=== PATIENT | female | born 1965 | race Caucasian/White ===

== ENCOUNTER → 2019-05-07 | Outpatient (CLI) | payer OTHER | LOC: MAMMO 09:45 | PROVIDERS: ATTEND Internal Medicine | DX: Z12.31 Encounter for screening mammogram for malignant neoplasm of breast (principal) | CPT/HCPCS: 77067 ==

== ENCOUNTER 2019-07-25 15:17 | Inpatient (IN) | payer OTHER ==
[~2019-07-25] VITALS: Ht 154.9 cm; Wt 174.6 kg
[2019-07-25] MEDS ORDERED: ONDANSETRON HCL INJ 2MG/ML 2ML 2 MG/ML VIAL IV STA (15:36)
[2019-07-25] MEDS ORDERED: MORPHINE SULFATE INJ 4 MG/ML INJ 1ML IV STA (15:36)
[2019-07-25] MEDS ORDERED: SODIUM CHLORIDE 0.9% 1000ML 1,000 ML IV STA (15:36)
[2019-07-25] MEDS ORDERED: LEXAPRO10 MG PO (16:00)
[2019-07-25] MEDS ORDERED: MONTELUKAST SOD10 MG PO (16:00)
[2019-07-25] MEDS ORDERED: FUROSEMIDE40 MG PO (16:00)
[2019-07-25] MEDS ORDERED: LEVOTHYROXINE50 MCG PO (16:00)
[2019-07-25 16:32] LABS: BASOPHILS % 0.4 % (0.0-1.0); EOSINOPHILS # (AUTO) 0.3 (0.0-0.4); EOSINOPHILS % 2.6 % (0.0-6.0); HEMATOCRIT 38.4 % (34.2-44.1); HEMOGLOBIN 10.4 g/dL (12.0-16.0); LYMPHOCYTES # (AUTO) 1.3 (1.0-3.2); LYMPHOCYTES % 12.5 % (18.0-39.1); MEAN CORPUSCULAR HEMOGLOBIN 21.3 pg (28-32); MEAN CORPUSCULAR HGB CONC 27.1 g/dL (31-35); MEAN CORPUSCULAR VOLUME 78.7 fL (81-99); MONOCYTES # (AUTO) 0.7 (0.2-0.8); MONOCYTES % 6.5 % (4.4-11.3); NEUTROPHILS # (AUTO) 7.9 (2.1-6.9); NEUTROPHILS % 77.5 % (38.7-80.0); PLATELET COUNT 213 x10e3/uL (140-360); RED BLOOD COUNT 4.88 x10e6/uL (3.6-5.1); RED CELL DISTRIBUTION WIDTH 21.3 % (11.7-14.4)
[2019-07-25 16:43] LABS: INR 1.05; PARTIAL THROMBOPLASTIN TIME 28.9 seconds (23.8-35.5); PROTHROMBIN TIME 14.2 seconds (11.9-14.5)
--- NOTE | 2019-07-25 16:45 | Diagnostic Imaging Report ---
EXAM: CHEST SINGLE (NOT PORTABLE) DATE: 07/25/2019 3:36 PM INDICATION: Abdominal pain COMPARISON: None IMPRESSION: The trachea is midline. There is mild prominence of the pulmonary vasculature which is nonspecific but can be seen in the setting of edema. The lungs are otherwise symmetrically expanded without evidence for large focal consolidation, pneumothorax, or significant pleural effusion. The cardiac silhouette appears prominent which may be secondary to technique. No acute osseous abdomen is identified. Signed by: Dr. Steve Collins MD on 07/25/2019 4:42 PM
[2019-07-25 16:50] LABS: CLARITY,URINE SL CLOUDY (CLEAR); COLOR,URINE YELLOW (YELLOW); LEUKOCYTE ESTERASE ,URINE NEGATIVE (NEGATIVE); NITRITE,URINE NEGATIVE (NEGATIVE)
[2019-07-25 16:51] LABS: BILIRUBIN,URINE NEGATIVE (NEGATIVE); KETONES,URINE NEGATIVE (NEGATIVE); PROTEIN,URINE DIPSTICK NEGATIVE (NEGATIVE); URINE UROBILINOGEN 0.2 mg/dL (0.2 - 1)
[2019-07-25] MEDS: PIPER-TAZ 3.375 GM 50 ML IV SCH (16:52)
[2019-07-25 16:55] LABS: ALANINE AMINOTRANSFERASE 21 IU/L (0-55); ALBUMIN 3.5 g/dL (3.5-5.0); ALBUMIN/GLOBULIN RATIO 0.9 (0.8-2.0); ALKALINE PHOSPHATASE 104 IU/L (40-150); ANION GAP 16.2 mmol/L (8-16); BLOOD UREA NITROGEN 11 mg/dL (7-26); BUN/CREATININE RATIO 12 (6-25); CARBON DIOXIDE 27 mmol/L (22-29); CHLORIDE 94 mmol/L (98-107); CREATINE KINASE 49 IU/L (29-168); CREATININE, SERUM 0.92 mg/dL (0.57-1.11); EST GLOMERULAR FILTRATION RATE > 60 ML/MIN (60-); GLUCOSE 99 mg/dL (74-118); POTASSIUM 4.2 mmol/L (3.5-5.1); SODIUM 133 mmol/L (136-145)
--- NOTE | 2019-07-25 17:01 | Diagnostic Imaging Report ---
CT of the abdomen and pelvis, without contrast. History: Abdominal pain. Comparison: None available. Technique: Multidetector CT scanning of the abdomen and pelvis was performed from the level of the lung bases to the inferior pubic rami without the use of contrast material. Coronal and sagittal multiplanar reformations were obtained. RADIATION DOSE: Total DLP: 1379.54 mGy*cm Dose modulation, iterative reconstruction, and/or weight based adjustment of the mA/kV was utilized to reduce the radiation dose to as low as reasonably achievable. FINDINGS: Please note the examination is limited by the patient's body habitus with portion of the left lower abdominal cavity abutting the gantry wall and is excluded from the examination. The visualized lungs are unremarkable. The imaged portion of the heart demonstrates no significant abnormality. The liver is mildly enlarged measuring 19 cm in length but otherwise but otherwise demonstrates an unremarkable noncontrast appearance. The gallbladder surgically absent. There are postsurgical changes from prior gastric bypass. The spleen is enlarged measuring 16.7 cm in length. The pancreas and bilateral adrenal glands demonstrate an unremarkable noncontrast appearance. The kidneys are normal in size and location. There is no evidence for nephrolithiasis or hydronephrosis. The partially distended urinary bladder demonstrates no significant abnormalities. The uterus and adnexa are grossly unremarkable. The abdominal aorta is normal in course and caliber. The IVC is normal in caliber. Please note evaluation the bowel is limited without the use of enteric contrast material. The visualized loops of small and large bowel demonstrate no evidence of obstruction or inflammation. There is no ascites or intraperitoneal free air. There are mildly enlarged right inguinal lymph nodes measuring up to 3.0 x 3.4 cm. There are degenerative changes of the thoracolumbar spine. The osseous structures demonstrate no evidence for acute fracture or destructive process. There are postsurgical changes and suspected suture material within the anterior peritoneal wall. Subcutaneous edema stranding present within the anterior abdominal wall. No organized fluid collection is identified. IMPRESSION: Limited examination secondary to patient's body habitus demonstrates no acute abdominopelvic process. Mild hepatomegaly and splenomegaly. Status post cholecystectomy and suspected gastric bypass. Nonspecific mildly enlarged right inguinal lymph nodes. Subcutaneous edema noted within the anterior abdominal wall without evidence for organized fluid collection. Signed by: Dr. Steve Collins MD on 07/25/2019 4:58 PM
[2019-07-25 17:05] LABS: BACTERIA,URINE MODERATE /HPF; EPITHELIAL CELLS,URINE MANY /LPF; TRANSITIONAL EPI CELLS,URINE FEW
[2019-07-25] MEDS ORDERED: SODIUM CHLORIDE 0.9% 1000ML 1,000 ML IV SCH (17:21)
[2019-07-25] MEDS ORDERED: MORPHINE SULFATE INJ 4 MG/ML INJ 1ML IV PRN (17:30)
[2019-07-25] MEDS ORDERED: MORPHINE SULFATE 2 MG/ML SYR 1ML IV PRN (17:30)
[2019-07-25] MEDS: VANCOMYCIN 1GM/NS 250 ML 250 ML IV SCH (17:36)
--- NOTE | 2019-07-25 17:46 | NUR ---
dr cesar herrera at pt bedside
[2019-07-25 18:25] VITALS: BP 113/75
[2019-07-25 18:42] VITALS: BP 113/75
[2019-07-25 18:44] VITALS: BP 130/75
--- NOTE | 2019-07-25 19:05 | NUR ---
received report from day nurse. patient is complaining of pain in the abdomen. MD paged awaiting call back.
[2019-07-25 20:15] VITALS: BP 103/56
[2019-07-25] MEDS: MONTELUKAST SODIUM 10 MG TAB PO SCH (20:42)
[2019-07-25] MEDS: ESCITALOPRAM OXALATE 10 MG TAB PO SCH (20:42)
[2019-07-25 20:45] VITALS: BP 103/56
--- NOTE | 2019-07-25 20:52 | NUR ---
paged a second time for pain medication orders. Received call back from . orders Tramadol 50mg q 12 hours as needed for pain.
[2019-07-25] MEDS ORDERED: TRAMADOL HCL 50 MG TAB PO PRN (21:00)
[2019-07-26] VITALS (8 sets, daily range): BP systolic 104–141; BP diastolic 57–80
--- NOTE | 2019-07-26 01:21 | History and Physical ---
CHIEF COMPLAINT: 1. Abdominal pain. 2. Abdominal swelling. 3. Abdominal redness. HISTORY OF PRESENT ILLNESS: This is a 53-year-old female with a past medical history of hypothyroidism, anxiety, obesity, obstructive sleep apnea, hypothyroidism, recurrent abdominal pain and cellulitis, was in her usual state until the patient came to the ER with abdominal pain, swelling and redness increasing lately. The patient has no leg pain, has bilateral leg edema. No shortness of breath. No chest pain. No diarrhea. No constipation. No hematochezia. No melena. PAST MEDICAL HISTORY: 1. Hypothyroidism. 2. Allergic rhinitis. 3. Obstructive sleep apnea. 4. Anxiety. 5. Morbid obesity. PAST SURGICAL HISTORY: 1. History of gastric bypass surgery. 2. Cholecystectomy. 3. Tonsillectomy. 4. . FAMILY HISTORY: Noncontributory. ALLERGIES: NO KNOWN DRUG ALLERGIES. MEDICATIONS: List attached. SOCIAL HISTORY: The patient denies illicit drug use. Denies smoking. Denies alcohol use. FAMILY HISTORY: Noncontributory. REVIEW OF SYSTEMS: CONSTITUTIONAL: Denies fatigue or weakness. HEENT: No diplopia. No blurring of vision. CARDIOPULMONARY: No chest pain. No shortness of breath. No cough. ALIMENTARY SYSTEM: Has abdominal pain. Abdominal wall redness and tenderness. No nausea, no vomiting. GENITOURINARY SYSTEM: No dysuria. No hematuria. MUSCULOSKELETAL: No joint pain. CENTRAL NERVOUS SYSTEM: No focal weakness. PHYSICAL EXAMINATION: GENERAL: This is a 53-year-old female, who is alert and oriented x3, in no gross distress. VITAL SIGNS: Temperature 98.3, pulse 103, respiratory rate 22, blood pressure 127/80. HEENT: Head is atraumatic and normocephalic. Pupils bilaterally equal to light. EOMs intact. NECK: Supple. No JVD. No carotid bruit. LUNGS: Clear to auscultation and percussion bilaterally. No added sounds. HEART: S1, S2. Regular rate and rhythm. No stenosis or murmur. ABDOMEN: Severely obese. There is redness around the umbilicus and below the umbilicus. Tenderness on touch, hot. No guarding or rigidity. EXTREMITIES: +1 pedal edema. Peripheral pulses +1. FILTER OPERATOR: Grossly nonfocal. LABORATORY DATA: CT of abdomen shows hepatosplenomegaly, abdominal wall cellulitis. Chest x-ray is normal. EKG is pending. Urine is normal. Sodium 133, potassium 4.2, BUN and creatinine normal. AST 43. BNP 308. CBC, white count 10.22, hemoglobin 10.4, hematocrit 38.4, platelet is 213. ASSESSMENT: 1. Abdominal wall cellulitis. 2. Hypothyroidism. 3. History of sleep apnea. 4. Morbid obesity. 5. Anxiety. 6. Allergic rhinitis. 7. Iron deficiency anemia. PLAN: Discontinue IV fluid, IV vancomycin and Zosyn. ID consult, Dr. Guaman. Subcu Lovenox 40 daily for DVT prophylaxis. For GI prophylaxis, Pepcid 20 p.o. b.i.d. Lab in the morning. Continue all home medicine. MD DANTE Judge/SCOOBY /[id number]
[2019-07-26 02:28] LABS: BASOPHILS % 0.4 % (0.0-1.0); EOSINOPHILS # (AUTO) 0.2 (0.0-0.4); EOSINOPHILS % 1.8 % (0.0-6.0); HEMATOCRIT 41.1 % (34.2-44.1); HEMOGLOBIN 10.7 g/dL (12.0-16.0); LYMPHOCYTES # (AUTO) 1.1 (1.0-3.2); LYMPHOCYTES % 10.1 % (18.0-39.1); MEAN CORPUSCULAR VOLUME 80.7 fL (81-99); MONOCYTES # (AUTO) 0.7 (0.2-0.8); MONOCYTES % 6.2 % (4.4-11.3); PLATELET COUNT 189 x10e3/uL (140-360); RED BLOOD COUNT 5.09 x10e6/uL (3.6-5.1); RED CELL DISTRIBUTION WIDTH 21.8 % (11.7-14.4)
[2019-07-26 02:54] LABS: ANION GAP 15.6 mmol/L (8-16); CALCIUM 8.8 mg/dL (8.4-10.2); CREATININE, SERUM 1.17 mg/dL (0.57-1.11); POTASSIUM 4.6 mmol/L (3.5-5.1)
[2019-07-26 03:11] LABS: FERRITIN 15.65 ng/mL (4.63-204.00)
[2019-07-26 03:18] LABS: FREE T4 (FREE THYROXINE) 0.73 ng/dL (0.8-1.8); THYROID STIMULATING HORMONE 7.389 uIU/mL (0.350-4.940)
[2019-07-26] MEDS: VANCOMYCIN 1GM/NS 250 ML 250 ML IV SCH (03:44)
[2019-07-26] MEDS: PIPER-TAZ 3.375 GM 50 ML IV SCH ×3 (05:00→11:26)
[2019-07-26] MEDS: LEVOTHYROXINE SODIUM 50 MCG TAB PO SCH (05:00)
--- NOTE | 2019-07-26 06:49 | NUR ---
REPORT GIVEN TO DAY NURSE. PATIENT IS RESTING COMFORTABLY IN BED. BED IS IN LOWEST POSITION AND CALL ZELAYA IS WITHIN REACH.
--- NOTE | 2019-07-26 07:04 | NUR ---
walking rounds completed, received change of shift report from restaurant shift supervisor RN, pt in stable condition. will continue to monitor.
[2019-07-26] MEDS: FAMOTIDINE 20 MG TAB PO SCH ×2 (07:30→17:18)
--- NOTE | 2019-07-26 07:48 | NUR ---
informed Dr Nicole of pt's difficulty breathing and request for BIPAP; he spoke with pt who states she has not had a sleep study done yet. He states he will consult Dr Miranda
--- NOTE | 2019-07-26 08:42 | NUR ---
spoke with Se[employer], [employer], about getting pt bariatric bed.
[2019-07-26] MEDS: ONDANSETRON HCL INJ 2MG/ML 2ML 2 MG/ML VIAL IV PRN ×2 (10:49→16:55)
[2019-07-26] MEDS: FUROSEMIDE 40 MG TAB PO SCH (10:53)
[2019-07-26] MEDS: ENOXAPARIN SOD INJ 40 MG/0.4 ML SYR SC SCH (10:53)
[2019-07-26] MEDS ORDERED: SUCCINYLCHOLINE CHLORIDE 20 MG/ML 10ML VIAL ONE ×3 (12:35→12:39)
[2019-07-26] MEDS ORDERED: ETOMIDATE 40 MG/ 20ML VIAL IV ONE ×2 (12:35→12:39)
[2019-07-26] MEDS: CEFEPIME 2 GM/NS 0.9% 100 ML 100 ML IV SCH (17:22)
[2019-07-26] MEDS ORDERED: VANCOMYCIN HCL 2 GM in SODIUM CHLORIDE 0.9% 500ML 500 ML IV SCH (18:00)
--- NOTE | 2019-07-26 18:15 | NUR ---
pt c/o nausea and vomiting which has continued after receiving Zofran; paging Dr Wayne Nicole for orders.
--- NOTE | 2019-07-26 18:31 | NUR ---
spoke with Dr. Nicole about pt's nausea; he states there is nothing further we can give at this time. He states make sure Dr. Guaman is aware of the associated nausea and vomiting concerning the new IV Abx that have been started.
--- NOTE | 2019-07-26 19:00 | NUR ---
received report from day nurse. patient is resting comfortably in bed.bed is in lowest position and call burton is within reach. will continue to monitor patient.
[2019-07-26] MEDS: MONTELUKAST SODIUM 10 MG TAB PO SCH (20:51)
[2019-07-26] MEDS: ESCITALOPRAM OXALATE 10 MG TAB PO SCH (20:51)
--- NOTE | 2019-07-26 22:20 | Consultation ---
DATE OF CONSULTATION: REASON FOR CONSULTATION: Cellulitis, abdominal wall. HISTORY OF PRESENT ILLNESS: This patient, who is a morbidly obese patient, hypothyroidism, anxiety, obstructive sleep apnea, hypothyroidism, and recurrent abdominal cellulitis. She told me in December, she was in [facility] where she was on IV antibiotic and she was sent home. She says she continued to have redness and swelling of the abdominal wall. She is coming with redness and swelling and pain of the abdominal wall. The patient was admitted, started on antibiotic. The patient is morbidly obese. MEDICAL HISTORY: She with the above medical history of hypothyroidism, allergic rhinitis, obstructive sleep apnea, and anxiety. PAST SURGICAL HISTORY: Gastric bypass surgery, cholecystectomy, tonsillectomy, . ALLERGIES: NKA. SOCIAL HISTORY: No smoking, drug abuse, or alcohol abuse. FAMILY HISTORY: Obesity. LABORATORY DATA: Reviewed. Blood cultures are negative. White count is 11.09, hemoglobin of 10, sodium 133, potassium 4.6, creatinine 1.17. Her TSH was 7.389. MEDICATION LIST: Reviewed. She is currently on Zosyn and vancomycin. PHYSICAL EXAMINATION: GENERAL: She is currently alert, oriented, and morbidly obese. HEENT: Not icteric. NECK: Supple. CHEST: Clear bilateral. HEART: S1-S2. No S3, S4, or murmur. ABDOMEN: Soft. There is erythema and there is edema noted in the abdominal wall. The erythema involving the abdominal wall, which is massive area because of her obesity. IMPRESSION: 1. Cellulitis. The patient is a morbidly obese patient. She weighed 410 pounds with a BMI of 77.5. We will put the patient on vancomycin and cefepime, vancomycin 2 g q.12 and cefepime 2 g q.8. obtain vancomycin trough. Obtain a PICC line. Recheck CBC. Recheck Chem panel. I am concerned about her kidney function. 2. Sleep apnea. 3. Morbidly obese patient. 4. She may benefit from going to an LTAC because of her obesity as it could be very difficult to manage her antibiotic and with this history of bypass. I do not think she absorbs antibiotic well. She tells me she took several courses of antibiotic as an outpatient without any improvement. We will discuss with attending and Medical team. She must lose weight. We will follow with you. MD VALENTIN Burnett /[id number]
[2019-07-26] MEDS: VANCOMYCIN HCL 2 GM in SODIUM CHLORIDE 0.9% 500ML 500 ML IV SCH (22:39)
[2019-07-27] VITALS (17 sets, daily range): BP systolic 95–147; BP diastolic 62–84
[2019-07-27] MEDS: CEFEPIME 2 GM/NS 0.9% 100 ML 100 ML IV SCH ×3 (01:46→16:52)
[2019-07-27] MEDS: IRON SUCROSE 100 MG in SODIUM CHLORIDE 0.9% 100 ML 100 ML IV SCH ×2 (03:03→21:31)
[2019-07-27 05:55] LABS: BASOPHILS % 0.4 % (0.0-1.0); EOSINOPHILS # (AUTO) 0.2 (0.0-0.4); EOSINOPHILS % 1.7 % (0.0-6.0); HEMATOCRIT 40.8 % (34.2-44.1); HEMOGLOBIN 10.4 g/dL (12.0-16.0); LYMPHOCYTES % 8.9 % (18.0-39.1); MEAN CORPUSCULAR HEMOGLOBIN 21.3 pg (28-32); MEAN CORPUSCULAR HGB CONC 25.5 g/dL (31-35); MEAN CORPUSCULAR VOLUME 83.6 fL (81-99); MONOCYTES # (AUTO) 0.7 (0.2-0.8); NEUTROPHILS # (AUTO) 9.1 (2.1-6.9); NEUTROPHILS % 81.9 % (38.7-80.0); PLATELET COUNT 182 x10e3/uL (140-360); RED BLOOD COUNT 4.88 x10e6/uL (3.6-5.1)
[2019-07-27] MEDS: LEVOTHYROXINE SODIUM 50 MCG TAB PO SCH (05:55)
[2019-07-27] MEDS ORDERED: LEVOTHYROXINE SODIUM 50 MCG TAB PO SCH (06:00)
[2019-07-27 06:13] LABS: ALBUMIN 3.6 g/dL (3.5-5.0); ALBUMIN/GLOBULIN RATIO 0.8 (0.8-2.0); CALCIUM 9.2 mg/dL (8.4-10.2); CREATININE, SERUM 1.35 mg/dL (0.57-1.11)
--- NOTE | 2019-07-27 06:25 | NUR ---
Received vancomycin trough result of 23.4 from laboratory. paged. Awaiting call back from .
[2019-07-27] MEDS: VANCOMYCIN HCL 2 GM in SODIUM CHLORIDE 0.9% 500ML 500 ML IV SCH (07:00)
--- NOTE | 2019-07-27 07:00 | NUR ---
PATIENT IS ALERT AND IN STABLE CONDITION WITH NO S/S OF RESPIRATORY DISTRESS. PATIENT DENIES PAIN. O2 APPLIED AT 4L NC. ALTERNATING BED AVAILABLE FOR PATIENT. CALL LIGHT IS WITHIN REACH OF PATIENT- PATIENT INSTRUCTED TO CALL FOR ASSISTANCE NEEDED.
--- NOTE | 2019-07-27 07:20 | NUR ---
report given to day nurse. patient is resting comfortably in bed. bed is in lowest position and call burton is within reach.
[2019-07-27] MEDS: FAMOTIDINE 20 MG TAB PO SCH ×2 (07:30→08:51)
[2019-07-27] MEDS: ENOXAPARIN SOD INJ 40 MG/0.4 ML SYR SC SCH (08:45)
[2019-07-27] MEDS: FUROSEMIDE 40 MG TAB PO SCH (09:00)
[2019-07-27] MEDS: ALBUTEROL/IPRATROPIUM 3 ML NEB NEB SCH ×3 (10:00→20:15)
[2019-07-27 10:28] LABS: ABG PH 7.14 (7.31-7.41)
--- NOTE | 2019-07-27 10:28 | NUR ---
CALLED AND LEFT A MESSAGE FOR DR. FARRIS WITH [facility] WITH ALL THE BLOOD GAS RESULTS. AWAITING CALLBACK
[2019-07-27 10:29] LABS: ABG HCO3 34 mmol/L (23-28); ABG PCO2 100 mmHg (41-51); ABG PO2 210 mmHg (80-105)
--- NOTE | 2019-07-27 10:30 | NUR ---
P.Brianda. NOTIFIED OF SIRS ALERT- AWAITING CALLBACK.
--- NOTE | 2019-07-27 10:57 | NUR ---
CALLED AND SPOKE WITH DR. GLORIA REGARDING PATIENT'S STATUS AND TRANSFER TO ICU. DR. GLORIA AWARE AND WILL ROUND ONT HE PATIENT THIS AFTERNOON.
--- NOTE | 2019-07-27 10:59 | NUR ---
CALLED AND SPOKE WITH DR. JOLLY REGARDING PATIENT'S EGD PROCEDURE TODAY- DR. JOLLY STATED THE PROCEDURE IS CANCEL. DR. JOLLY UPDATED ON THE PATIENT'S STATUS. ORDER TO KEEP THE PATIENT NPO.
[2019-07-27] MEDS ORDERED: ALBUTEROL/IPRATROPIUM 3 ML NEB NEB SCH (11:00)
[2019-07-27] MEDS ORDERED: METHYLPREDNISOLONE SOD SUCC 40 MG/ML VIAL 1ML IV SCH (11:00)
[2019-07-27 11:45] LABS: ABG PCO2 95 mmHg (41-51); ABG PH 7.14 (7.31-7.41); ABG PO2 112 mmHg (80-105)
[2019-07-27 11:46] LABS: ABG HCO3 33 mmol/L (23-28)
--- NOTE | 2019-07-27 11:55 | NUR ---
Residential Insurance Inspector responded to Rapid Response. No family at bedside. Provided calming presence for staff. LAVERN SKAGGS Residential Insurance Inspector Spiritual Care Department O: [phone] Pager: [phone] ([phone] number calling from)
--- NOTE | 2019-07-27 12:00 | NUR ---
RAPID RESPONSE CALLED ON PATIENT PER 'S ORDER. DR. WALKER, ER PHYSICIAN, WILL INTUBATE THE PATIENT WHEN THE PATIENT TRANSFERS TO ICU.
--- NOTE | 2019-07-27 12:01 | NUR ---
CALL PLACED OUT TO DR. FARRIS REQUESTED BY DR. WALKER, ER PHYSICIAN, REGARDING RAPID RESPONSE/INTUBATING THE PATIENT. AWAITING CALLBACK
--- NOTE | 2019-07-27 12:24 | NUR ---
PATIENT TRANSFER TO ICU ROOM 196 AT 1215 PER BED WITH BIPAP APPLIED. PATIENT IN STABLE CONDITION. IV SALINE LOCKED TO LEFT AC. PATIENT REPOSITION IN ICU- REPORT GIVEN TO ICU NURSE IN THE ICU.
[2019-07-27] MEDS ORDERED: DEXMEDETOMIDINE 200MCG/NS 50ML 50 ML IV PRN (13:15)
[2019-07-27] MEDS ORDERED: DEXMEDETOMIDINE 200MCG/NS 50ML 100 ML IV ONE (13:15)
[2019-07-27] MEDS: METHYLPREDNISOLONE SOD SUCC 40 MG/ML VIAL 1ML IV SCH (14:07)
--- NOTE | 2019-07-27 15:00 | NUR ---
Ty SOLIS notified of vancomycin trough results. ordered vancomycin dosage to be changed to 1.5 grams. Will continue to monitor the patient.
[2019-07-27 15:24] LABS: ABG HCO3 33 mmol/L (23-28); ABG PCO2 94 mmHg (41-51); ABG PH 7.16 (7.31-7.41); ABG PO2 79 mmHg (80-105)
[2019-07-27] MEDS ORDERED: SODIUM CHLORIDE 0.9% 250ML 250 ML ONE (15:42)
[2019-07-27 17:19] LABS: ABG PH 7.17 (7.31-7.41)
--- NOTE | 2019-07-27 17:19 | NUR ---
Patient arrived to unit at 1230 from the medical surgical floor, pending possible intubation. Per ER doctor Neo no need to intubate at this time and patient refusing intubation. Patient arrived agitated and confused. Patient is non compliant and is removing bipap and trying to get out of bed, despite frequent reorientation. Dr. Mendoza notified and orders for Precedex and restraints given. ABG done after 30 minutes of wearing bipap consistently. Dr. mendoza and neo informed of results. Dr. Allison Nicole at bedside to evaluate pt. Dr. Hackett ordered ABG at 1700, notified of results. ABG ordered for 1800.
[2019-07-27 17:20] LABS: ABG HCO3 32 mmol/L (23-28); ABG PCO2 89 mmHg (41-51); ABG PO2 103 mmHg (80-105)
--- NOTE | 2019-07-27 17:32 | Consultation ---
DATE OF CONSULTATION: Pulmonary Consultation Patient of Dr. Jazlyn Nicole. HISTORY OF PRESENT ILLNESS: Charming, but unfortunate 53-year-old woman, sleepy, somnolent, snoring with episodes of apnea, admitted with a chief complaint of abdominal pain on the 11th of this month. PAST MEDICAL HISTORY: History of obstructive sleep apnea diagnosed in [place], unable to afford a CPAP, history of asthma since age 4. Hypothyroidism and depression, found to be iron deficient. ALLERGIES: HISTORY OF NO KNOWN ALLERGIES. MEDICATIONS: Include: 1. Lexapro. 2. Lasix. 3. Suboxone. 4. Montelukast. PAST SURGICAL HISTORY: She has had Betsy-en-Y surgery, T and A, C-sections, and gallbladder surgery. SOCIAL HISTORY: Nonsmoker. No alcohol. Born in [place]. Worked in sales. FAMILY HISTORY: Positive for cancer. PHYSICAL EXAMINATION: GENERAL: Sleepy, but arousable, able to relate her history. VITAL SIGNS: Temperature 95.9, pulse 98, respirations 14, and blood pressure . NECK: Trachea midline. LUNGS: Diminished breath sounds. HEART: Regular rhythm. ABDOMEN: Obese, surgical scars at the panniculus and resolving cellulitis. EXTREMITIES: Stasis changes in lower extremity. IMPRESSION: Respiratory failure, obesity hypoventilation syndrome, cellulitis, anemia presumably related to bowel obstruction. PLAN: Transfer to ICU. BiPAP. Check blood gases. Bronchodilators. Moderate-dose corticosteroids. Thank you for this kind referral. MD REYNALDO Borges/MODL /[id number]
[2019-07-27] MEDS: VANCOMYCIN HCL IV SCH (18:03)
[2019-07-27] MEDS: SODIUM CHLORIDE 0.9% IV SCH (18:03)
[2019-07-27 18:56] LABS: ABG HCO3 32 mmol/L (23-28); ABG PCO2 86 mmHg (41-51); ABG PH 7.18 (7.31-7.41); ABG PO2 115 mmHg (80-105)
[2019-07-27] MEDS ORDERED: BUDESONIDE/FORMOTEROL 160/4.5MCG INHALER INH SCH (19:00)
[2019-07-27] MEDS: ESCITALOPRAM OXALATE 10 MG TAB PO SCH (20:14)
[2019-07-27] MEDS: MONTELUKAST SODIUM 10 MG TAB PO SCH (20:15)
[2019-07-27] MEDS: DEXMEDETOMIDINE 200MCG/NS 50ML 50 ML IV PRN (21:00)
[2019-07-28] VITALS (26 sets, daily range): BP systolic 98–138; BP diastolic 62–85
[2019-07-28] MEDS: ALBUTEROL/IPRATROPIUM 3 ML NEB NEB SCH ×7 (00:15→22:05)
[2019-07-28] MEDS: CEFEPIME 2 GM/NS 0.9% 100 ML 100 ML IV SCH ×3 (00:36→16:25)
[2019-07-28] MEDS: DEXMEDETOMIDINE 200MCG/NS 50ML 50 ML IV PRN ×4 (02:05→06:41)
[2019-07-28] MEDS: METHYLPREDNISOLONE SOD SUCC 40 MG/ML VIAL 1ML IV SCH ×2 (02:59→15:39)
[2019-07-28] MEDS: LEVOTHYROXINE SODIUM 75 MCG TAB PO SCH (05:09)
[2019-07-28 05:38] LABS: BASOPHILS % 0.2 % (0.0-1.0); EOSINOPHILS # (AUTO) 0.1 (0.0-0.4); EOSINOPHILS % 0.6 % (0.0-6.0); HEMATOCRIT 40.7 % (34.2-44.1); HEMOGLOBIN 10.3 g/dL (12.0-16.0); LYMPHOCYTES % 8.2 % (18.0-39.1); MEAN CORPUSCULAR HGB CONC 25.3 g/dL (31-35); MEAN CORPUSCULAR VOLUME 83.1 fL (81-99); MONOCYTES # (AUTO) 0.7 (0.2-0.8); MONOCYTES % 5.8 % (4.4-11.3); NEUTROPHILS # (AUTO) 10.6 (2.1-6.9); NEUTROPHILS % 84.3 % (38.7-80.0); PLATELET COUNT 175 x10e3/uL (140-360); RED CELL DISTRIBUTION WIDTH 21.2 % (11.7-14.4)
[2019-07-28 05:49] LABS: ANION GAP 17.3 mmol/L (8-16); CALCIUM 9.2 mg/dL (8.4-10.2); CREATININE, SERUM 1.75 mg/dL (0.57-1.11)
[2019-07-28] MEDS ORDERED: LEVOTHYROXINE SODIUM 50 MCG TAB PO SCH (06:00)
[2019-07-28] MEDS ORDERED: FUROSEMIDE INJ 10 MG/ML 4 ML VIAL IV SCH (06:00)
[2019-07-28 06:19] LABS: POTASSIUM 6.3 mmol/L (3.5-5.1)
--- NOTE | 2019-07-28 06:32 | NUR ---
Page out to Dr. Mendoza regarding critical potassium level. Awaiting call back.
[2019-07-28] MEDS: VANCOMYCIN HCL IV SCH ×2 (06:42→18:16)
[2019-07-28] MEDS: SODIUM CHLORIDE 0.9% IV SCH ×2 (06:42→18:16)
[2019-07-28] MEDS ORDERED: ALBUTEROL SULF 0.083% NEB SOLN 3 ML NEB NEB STA (06:50)
[2019-07-28] MEDS ORDERED: DEXTROSE 50% SYRINGE 50 ML IV STA (06:58)
[2019-07-28] MEDS ORDERED: FUROSEMIDE INJ 10 MG/ML 4 ML VIAL IV ONE (07:00)
[2019-07-28] MEDS ORDERED: INSULIN REGULAR, HUMAN 100 UNIT/1 ML 3ML VIAL SQ ONE (07:00)
--- NOTE | 2019-07-28 07:01 | NUR ---
Dr. Hackett rounding on patient, saw critical potassium levels and notified that we are waiting for Mendoza to call back. gave orders. Orders entered in eMAR
[2019-07-28] MEDS ORDERED: ALBUTEROL SULF 0.083% NEB SOLN 3 ML NEB ONE (07:14)
--- NOTE | 2019-07-28 07:38 | Diagnostic Imaging Report ---
EXAMINATION: CHEST SINGLE (PORTABLE) INDICATION: ^sob ^[id number] ^[id number] COMPARISON: 07/25/2019 FINDINGS: AP view TUBES and LINES: None. LUNGS: Worsening decreased lung volumes when compared to prior exam. Bilateral interstitial edema, increased. Left lower hemithorax is difficult to evaluate but appears to be worsening pleural effusion/atelectasis. PLEURA: Possible small left pleural effusion, increased since prior exam. No pneumothorax. HEART AND MEDIASTINUM: Widening of the mediastinum likely due to technique. Moderate enlargement of the cardiac silhouette is unchanged. BONES AND SOFT TISSUES: No acute osseous lesion. Soft tissues are unremarkable. UPPER ABDOMEN: No free air under the diaphragm. IMPRESSION: Worsening bilateral interstitial edema. Opacification of the left lower hemithorax may be overestimated by technique but suspected new left pleural effusion. Consider repeat chest x-ray with better inspiration. Signed by: Dr. Aayla Can M.D. on 07/28/2019 7:34 AM
[2019-07-28] MEDS: ENOXAPARIN SOD INJ 40 MG/0.4 ML SYR SC SCH (07:52)
[2019-07-28] MEDS ORDERED: INSULIN REGULAR, HUMAN 100 UNIT/1 ML 3ML VIAL IV ONE (08:00)
[2019-07-28] MEDS ORDERED: SOD POLYSTYRENE SULFONATE SUSP 15 GM/60 ML BTL PO NR (08:15)
[2019-07-28 08:47] LABS: HYPOCHROMASIA MODERATE; PLATELET ESTIMATE ADEQUATE; PLATELET MORPHOLOGY COMMENT NORMAL; RBC MORPHOLOGY COMMENT ABNORMAL; TARGET CELLS FEW
[2019-07-28] MEDS ORDERED: ATROPINE SULFATE 0.1 MG/ML 10ML SYR ONE (08:55)
[2019-07-28] MEDS ORDERED: SODIUM CHLORIDE 0.9% 1000ML 1,000 ML ONE (08:55)
[2019-07-28] MEDS: FENTANYL CITRATE INJ 2000 MCG in SODIUM CHLORIDE 0.9% 210 ML IV PRN ×2 (09:39→22:21)
[2019-07-28] MEDS ORDERED: DEXTROSE 5%/0.9% SOD CHL 1,000 ML IV SCH (10:00)
[2019-07-28] MEDS ORDERED: SODIUM CHLORIDE 0.9% 250ML 250 ML IV ONE (10:00)
--- NOTE | 2019-07-28 10:00 | Diagnostic Imaging Report ---
EXAMINATION: CHEST SINGLE (PORTABLE) INDICATION: ^[id number] ^[id number] ^INTUBATION AND CENTRAL LINE COMPARISON: None FINDINGS: AP view TUBES and LINES: Suboptimal exam due to underpenetration. There is interval intubation. Endotracheal tube appears to overlie in the right mainstem bronchus. No central line visualized. LUNGS: Low lung volumes. Persistent bilateral interstitial edema. PLEURA: No pleural effusion or pneumothorax. HEART AND MEDIASTINUM: Moderate enlargement of the cardiac silhouette. BONES AND SOFT TISSUES: No acute osseous lesion. Soft tissues are unremarkable. UPPER ABDOMEN: No free air under the diaphragm. IMPRESSION: Suboptimal exam due to underpenetration. Endotracheal tube appears to be in the right mainstem bronchus. Recommend retrieve it by 4 cm. No central line visualized. These findings were communicated to Dr Mendoza on 07/28/2019 at 9:55AM. Signed by: Dr. Ayala Can M.D. on 07/28/2019 9:57 AM
[2019-07-28] MEDS ORDERED: PANTOPRAZOLE 40 MG 10ML VIAL IV NR (10:45)
[2019-07-28 10:47] LABS: ABG PCO2 75 mmHg (41-51); ABG PO2 80 mmHg (80-105)
[2019-07-28 10:48] LABS: ABG HCO3 30 mmol/L (23-28)
[2019-07-28] MEDS: BUDESONIDE 0.5MG/2 ML NEB INH SCH ×2 (11:06→19:05)
--- NOTE | 2019-07-28 11:43 | NUR ---
Dr. Susan Hackett rounded this morning after ABG drawn, MD aware potassium 6.3. wanted to order albuterol, D50, insulin IV and Lasix. Dr. Mendoza called to make sure MD ok with these orders. Dr. Mendoza gave ok to carry out orders, MD also informed of ABG results. Potassium recheck ordered for this afternoon. Rapid response called at 0840 due to respiratory failure and pt agitation. Patient running bradycardia in 50's, O2 sats in 80's. Dr. Roxanne Hackett intubated patient. Patient given 40mg Etomidate, 200mg Succinycholine. During intubation patient's HR dropped to 20-30's temporarily. Atropine given IV. (refer to rapid response sheet for times and doses). Patient started on versed and fentanyl drip. Dr. Roxanne Hackett placed RIJ during rapid response due to poor IV access. NGT attempted as well but stopped due to patient's bleeding. Chest x ray post line placement did not show central line (both Dr. Hackett and Dr. Mendoza aware), chest x ray re ordered (both doctors informed again of results). Respiratory ordered by Dr. Mendoza to retract ETT tube slightly. Dr. Susan Hackett came and attempted central line placement again but was unsuccessful. Previous malpositioned central line removed by Dr. Roxanne Hackett. Bleeding present upon removal of CVC, pressure held until bleeding stopped. Per MD line placement will need to be done by interventional radiology or consider PICC line. Will continue to monitor the patient.
[2019-07-28 13:09] LABS: ABG HCO3 27 mmol/L (23-28); ABG PCO2 49 mmHg (41-51); ABG PH 7.36 (7.31-7.41); ABG PO2 102 mmHg (80-105)
[2019-07-28] MEDS: BUMETANIDE 10 MG in SODIUM CHLORIDE 0.9% 100 ML 60 ML IV SCH (17:20)
--- NOTE | 2019-07-28 17:48 | Diagnostic Imaging Report ---
EXAMINATION: CHEST SINGLE (PORTABLE) INDICATION: ^intubation cvp ^[id number] ^[id number] COMPARISON: None FINDINGS: AP view TUBES and LINES: Endotracheal tube has been mildly retracted, now at the level of the kelle. Recommend retraction of at least additional 2 cm. There is a left IJ central venous catheter overlying the neck which appears to be kinked and the distal aspect of the catheter extending into the supraclavicular region. LUNGS: Low lung volumes. Bilateral interstitial edema, unchanged. Left lower hemithorax is difficult to evaluate but appears to be pleural effusion/atelectasis. PLEURA: Possible small left pleural effusion, increased since prior exam. No pneumothorax. HEART AND MEDIASTINUM: Widening of the mediastinum likely due to technique. Moderate enlargement of the cardiac silhouette is unchanged. BONES AND SOFT TISSUES: No acute osseous lesion. Soft tissues are unremarkable. UPPER ABDOMEN: No free air under the diaphragm. IMPRESSION: Mild retraction of the endotracheal tube at the T11 level of the kelle. Right common additional retraction of 2 cm. Left IJ central venous catheter of uncertain location, with the stent catheter overlying the soft tissues of the left supraclavicular region. An additional chest radiograph would be obtained in the radiology department for better characterization of the findings. Unchanged bilateral interstitial edema. Signed by: Dr. Ayala Can M.D. on 07/28/2019 5:45 PM
[2019-07-28 18:29] LABS: CLARITY,URINE SL CLOUDY (CLEAR); COLOR,URINE YELLOW (YELLOW); KETONES,URINE NEGATIVE (NEGATIVE); LEUKOCYTE ESTERASE ,URINE SMALL (NEGATIVE); NITRITE,URINE NEGATIVE (NEGATIVE); PROTEIN,URINE DIPSTICK NEGATIVE (NEGATIVE); URINE UROBILINOGEN 0.2 mg/dL (0.2 - 1)
[2019-07-28 18:30] LABS: BILIRUBIN,URINE NEGATIVE (NEGATIVE)
--- NOTE | 2019-07-28 18:30 | NUR ---
Dr. Mendoza informed of ABG results. Patient had episodes of desaturating due to biting on ETT tube. Respiratory called. Patient repositioned and saturations became WNL. Dr. Somers's office called and notified of new consult. Nephrology ok with PICC line placement, Dr. Mendoza notified and gave orders. called for consent but did not call back. IV fluids d/c and pt started on bumex drip. Will continue to monitor the patient.
--- NOTE | 2019-07-28 18:35 | Progress Note ---
DATE: SUBJECTIVE: Ms. Garcia is intubated. She is in intensive care unit. She is sedated, noncommunicative. . PHYSICAL EXAMINATION: GENERAL: She is intubated, sedated, morbidly obese patient. HEENT: Normocephalic. Oral intubation. CHEST: A few crackles. COR: S1,S2. No murmurs. ABDOMEN: Soft, obese. No tenderness. SKIN: The legs and abdomen seems to be less erythematous, less edematous, but still she does have venous stasis dermatitis. IMPRESSION: 1. Respiratory failure. 2. Obstructive sleep apnea. 3. Morbidly obese patient. 4. Status post Betsy-en-Y surgery. 5. Cellulitis of the abdominal wall. 6. Bilateral lower extremities edema. 7. Bilateral lower extremities venous stasis dermatitis. Multiple admissions recently. PLAN: Continue with cefepime and vancomycin. Follow trough. Recheck CBC. Recheck Chem panel. Prognosis is very guarded. We will follow with you. MD SHAYNA Burnett/SCOOBY /[id number]
[2019-07-28 18:36] LABS: BACTERIA,URINE FEW /HPF; EPITHELIAL CELLS,URINE FEW /LPF
[2019-07-28] MEDS: MONTELUKAST SODIUM 10 MG TAB PO SCH (20:48)
[2019-07-28] MEDS: ESCITALOPRAM OXALATE 10 MG TAB PO SCH (20:48)
[2019-07-28] MEDS: IRON SUCROSE 100 MG in SODIUM CHLORIDE 0.9% 100 ML 100 ML IV SCH (20:51)
[2019-07-28] MEDS: MIDAZOLAM HCL 25 MG in SODIUM CHLORIDE 0.9% 45 ML IV PRN (22:21)
[2019-07-29] VITALS (28 sets, daily range): BP systolic 107–177; BP diastolic 68–99
--- NOTE | 2019-07-29 00:26 | Consultation ---
DATE OF CONSULTATION: 07/28/2019 Nephrology consult HISTORY OF PRESENT ILLNESS: The patient is a 53-year-old woman who has a history of obstructive sleep apnea, COPD, and hypothyroidism. She presents for evaluation of abdominal cellulitis. I am asked to evaluated kidney injury component. The patient is admitted presently in the intensive care unit requiring ventilatory support and directed antibiotics, seen by Dr. Guaman of the Infectious Disease service. She is on 45% of O2 ventilatory delivery and received medical treatment for hypokalemia this morning of consult. Repeat potassium has improved. So, she received diuretic with posterior and output noted by Araya catheter. LABORATORY DATA: Labs at this time; creatinine elevation to 1.7 mg/dL from 1.4 mg/dL at admission. REVIEW OF SYSTEMS: Her review of systems is unable to be obtained due to ventilation and present situation. ALLERGIES: NO KNOWN DRUG ALLERGIES. MEDICATIONS AT HOME: Lexapro, Lasix, Suboxone, and montelukast. PAST MEDICAL HISTORY: Obstructive sleep apnea, hypothyroidism, COPD, depression, iron deficiency and morbid obesity. SOCIAL HISTORY: No tobacco, alcohol or illicit drugs. FAMILY HISTORY: Unknown for renal disease. PAST SURGICAL HISTORY: Betsy-en-Y surgery, sections, cholecystectomy, (gastric bypass surgery, tonsillectomy, cesarian section). LABORATORY DATA: Labs at this time; sodium 135, potassium is improved to 5.3 from 6.3 on prior morning. Chloride 100, bicarb 24, BUN 12, creatinine 1.75, glucose 113, calcium 9.2, total protein 8.0, albumin 3.6, globulin fraction 4.4, TSH 7.3. Urinalysis, yellow, slightly cloudy , unremarkable, moderate bacteria is noted. ABG; 7.36 pH, pCO2 49%, pO2 102, bicarb calculated 27. FiO2 60%. Vancomycin level on 07/27/2019 is 23.4. Random vancomycin is 18.8. Chest x-ray reveals worsening bilaterally interstitial edema. There is opacification on the left lower lobe pneumothorax, which may be over estimated by technique, but suspecting new left pleural effusion. Abdomen and pelvis CT on 07/25. No IV contrast administered. There was mild hepatomegaly and splenomegaly with some cutaneous edema in the anterior abdominal wall without evidence of inorganic fluid collection. This is my formal report. The kidneys are normal in size and location. No evidence for nephrolithiasis or hydronephrosis. Partially distended urinary bladder again by formal report. PHYSICAL EXAMINATION: GENERAL: Oral intubation. VITAL SIGNS: The patient is afebrile, 98.0. Blood pressure 98/62, respirations 16, ventilatory set at 45% FiO2 delivery. HEAD AND NECK: Atraumatic, normocephalic. ORAL: ET tube. No scleral or mucosal lesions. NECK: Positive midline trachea. No JVP appreciated. LUNGS: Revealed decreased breath sounds in the posterior bases. No wheezes. No rhonchi. CARDIAC: Regular rate. Distant sounds. ABDOMEN: Obese, soft, nontender and nondistended. No guarding or rebound. EXTREMITIES: Positive lower extremities tissue/edema, bilateral lower extremities. Also positive stasis changes of skin. ABDOMEN: Obese. Surgical scars noted. Resolving cellulitis. ASSESSMENT: 1. Nonoliguric kidney injury superimposed and likely underlying chronic kidney disease stage 3. 2. Increase volume status. 3. Hyperkalemia. 4. Stabilizing base status. 5. Hemodynamically presently stable with ongoing treatment and monitoring. 6. Cellulitis. Continuous antibiotics by Infectious Disease Service. PLAN: 1. Daily renal panel. 2. Monitor potassium and treat medically as required. 3. Bumex infusion and monitor urine output volume status with hemodynamics. 4. Dose and adjust medications for estimated creatinine clearance were approximately 35 to 40 mL per minute . 5. Presently no acute indication for dialysis consideration. 6. Other recommendations as per clinical course and data. MD REENA Lane/MODL /[id number]
[2019-07-29] MEDS: MIDAZOLAM HCL 25 MG in SODIUM CHLORIDE 0.9% 45 ML IV PRN ×9 (01:17→23:38)
[2019-07-29] MEDS: CEFEPIME 2 GM/NS 0.9% 100 ML 100 ML IV SCH ×3 (01:45→17:45)
[2019-07-29] MEDS: BUMETANIDE 10 MG in SODIUM CHLORIDE 0.9% 100 ML 60 ML IV SCH ×3 (02:00→23:37)
[2019-07-29] MEDS: METHYLPREDNISOLONE SOD SUCC 40 MG/ML VIAL 1ML IV SCH ×2 (03:12→17:45)
[2019-07-29] MEDS: ALBUTEROL/IPRATROPIUM 3 ML NEB NEB SCH ×6 (03:50→23:50)
[2019-07-29 05:58] LABS: BASOPHILS % 0.2 % (0.0-1.0); EOSINOPHILS # (AUTO) 0.1 (0.0-0.4); EOSINOPHILS % 1.3 % (0.0-6.0); HEMATOCRIT 39.2 % (34.2-44.1); HEMOGLOBIN 10.5 g/dL (12.0-16.0); LYMPHOCYTES # (AUTO) 1.2 (1.0-3.2); LYMPHOCYTES % 11.6 % (18.0-39.1); MEAN CORPUSCULAR HEMOGLOBIN 21.3 pg (28-32); MEAN CORPUSCULAR HGB CONC 26.8 g/dL (31-35); MEAN CORPUSCULAR VOLUME 79.4 fL (81-99); MONOCYTES # (AUTO) 0.7 (0.2-0.8); MONOCYTES % 7.2 % (4.4-11.3); NEUTROPHILS # (AUTO) 8.1 (2.1-6.9); NEUTROPHILS % 78.7 % (38.7-80.0); PLATELET COUNT 181 x10e3/uL (140-360); RED BLOOD COUNT 4.94 x10e6/uL (3.6-5.1); RED CELL DISTRIBUTION WIDTH 21.9 % (11.7-14.4)
[2019-07-29] MEDS: LEVOTHYROXINE SODIUM 75 MCG TAB PO SCH ×2 (06:00→17:00)
[2019-07-29] MEDS: FENTANYL CITRATE INJ 2000 MCG in SODIUM CHLORIDE 0.9% 210 ML IV PRN ×3 (06:10→20:46)
[2019-07-29 06:26] LABS: INR 1.14; PROTHROMBIN TIME 15.2 seconds (11.9-14.5)
[2019-07-29 06:37] LABS: ALBUMIN 3.3 g/dL (3.5-5.0); ALBUMIN/GLOBULIN RATIO 0.8 (0.8-2.0); CALCIUM 9.6 mg/dL (8.4-10.2); CREATININE, SERUM 1.97 mg/dL (0.57-1.11); MAGNESIUM 2.2 MG/DL (1.3-2.1)
[2019-07-29] MEDS: VANCOMYCIN HCL IV SCH (07:00)
[2019-07-29] MEDS: SODIUM CHLORIDE 0.9% IV SCH (07:00)
[2019-07-29] MEDS: BUDESONIDE 0.5MG/2 ML NEB INH SCH ×2 (07:20→19:20)
--- NOTE | 2019-07-29 07:29 | Diagnostic Imaging Report ---
EXAMINATION: CHEST SINGLE (PORTABLE) INDICATION: Intubation, CVP. COMPARISON: Chest radiograph 07/28/2019. FINDINGS: AP view Limited examination secondary to portable technique and soft tissue attenuation. TUBES and LINES: Endotracheal tube terminates in the right main stem bronchus, and is approximately 2 cm from the kelle. Previously noted kinked left IJ central venous catheter is no longer visualized, and likely has been removed. LUNGS: Low lung volumes. Mild interstitial opacities. Patchy right lower lung opacity. Persistent opacification of the left hemithorax with no significant mediastinal shift. PLEURA: Persistent moderate left pleural effusion. HEART AND MEDIASTINUM: The cardiomediastinal silhouette appears unchanged and enlarged. BONES AND SOFT TISSUES: No acute osseous lesion. Soft tissues are unremarkable. UPPER ABDOMEN: No free air under the diaphragm. IMPRESSION: Endotracheal tube terminates in the right main stem bronchus, and is approximately 2 cm from the kelle. Recommend retraction by at least 3-4 cm. Persistent opacities of the left lung, likely reflecting a combination of atelectasis/collapse and pleural effusion. Previously noted kinked left IJ central venous catheter is no longer visualized, and likely has been removed. Pulmonary interstitial edema. Signed by: Dr. Adam Constantino MD on 07/29/2019 7:25 AM
[2019-07-29] MEDS ORDERED: PANTOPRAZOLE 40 MG 10ML VIAL IV SCH (09:00)
[2019-07-29] MEDS: ENOXAPARIN SOD INJ 40 MG/0.4 ML SYR SC SCH (09:30)
[2019-07-29 09:42] LABS: ANISOCYTOSIS SLIGHT; HYPOCHROMASIA SLIGHT; PLATELET ESTIMATE ADEQUATE; PLATELET MORPHOLOGY COMMENT NORMAL; RBC MORPHOLOGY COMMENT NORMAL
[2019-07-29 09:44] LABS: POLYCHROMASIA FEW
[2019-07-29] MEDS: PANTOPRAZOLE 40 MG 10ML VIAL IV SCH (10:00)
--- NOTE | 2019-07-29 12:05 | Progress Note ---
DATE: 07/29/2019 Cardiology Progress Note CONSULTING PHYSICIAN: Praveen Troncoso MD, Interventional Cardiology. REASON FOR CONSULTATION: Shortness of breath. HISTORY OF PRESENT ILLNESS: Pleasant 53-year-old woman with extreme morbid obesity, status post gastric bypass, obstructive sleep apnea, hypothyroidism, presents with progressive worsening shortness of breath today via the emergency department. She was placed on BiPAP, however, remained in respiratory distress, hypercarbic, hypoxemic, and is undergoing endotracheal intubation and ventilatory support. She is currently in the ICU, sedated RASS -1, able to open eyes and track with ease, seemingly comfortable. REVIEW OF SYSTEMS: A 12-system review unable to assess. The patient is intubated. ALLERGIES: NO KNOWN DRUG ALLERGIES. PAST MEDICAL HISTORY: CYNTHIA, morbid obesity, hypothyroidism, status post gastric bypass, cholecystectomy, tonsillectomy, . FAMILY HISTORY: Noncontributory. SOCIAL HISTORY: Unable to assess. PHYSICAL EXAMINATION: VITAL SIGNS: Temperature 99.3, heart rate 61, respiratory rate 17, blood pressure 136/83, and O2 saturation 95% on vent support. GENERAL: No acute distress, alert. Intubated, mildly sedated. CHEST: Decreased breath sounds. CARDIOVASCULAR: Regular rate and rhythm. Normal S1, S2. Distant heart sounds. ABDOMEN: Bowel sounds positive. EXTREMITIES: 2+ edema to both lower extremities. Warm distal extremities. MEDICATIONS: Reviewed. On cefepime, vancomycin, methylprednisolone, furosemide 40 mg IV once, Lovenox 40 mg subcu daily, and Bumex 1 mg/hour IV. STUDIES: Reviewed. Calcium 9.6, magnesium 2.2, phosphorus 3. BNP 221. Sodium 138, potassium 5, chloride 99, bicarbonate 23, BUN 28, creatinine 1.97, glucose 111. White blood cells 10.2, hemoglobin 10.5, and platelets 181. PT 15.2, PTT 29. INR 1.1. AST 54, ALT 21, alkaline phosphatase 103, total bilirubin 0.8. X-ray with interstitial pulmonary edema, left retrocardiac opacity, concerning for a pleural effusion versus atelectasis. ASSESSMENT AND PLAN: 1. A 53-year-old woman with mixed hypercarbic and hypoxemic respiratory failure in the setting of obstructive sleep apnea, morbid obesity. 2. Acute renal failure. 3. Anemia. 4. Xqrct-qv-[id number] diastolic heart failure. 5. Extreme morbid obesity with BMI of 75.7, status post gastric bypass. RECOMMEND: 1. Defer antibiotic therapy to ID expertise. 2. Seems to be making adequate urine output on Bumex at 1 mg/hour. Continue to monitor. Volume status at this point, hypervolemic. 3. Monitor H and H. 4. Obtain echocardiogram being obtained today at bedside. Reviewed preserved left ventricular systolic function noted. Praveen Troncoso MD AFV/MODL /[id number]
[2019-07-29] MEDS: DEXMEDETOMIDINE 200MCG/NS 50ML 50 ML IV PRN ×5 (14:00→23:38)
--- NOTE | 2019-07-29 14:12 | NUR ---
progress note [id number]
[2019-07-29] MEDS: LACTULOSE SYRUP 20 GM/30 ML UDC NG SCH (17:45)
--- NOTE | 2019-07-29 18:58 | NUR ---
am vanc trough 43.[address] pelletier order to dc vancomycin
--- NOTE | 2019-07-29 19:01 | NUR ---
nursing report handoff given to chha YO Salgado
[2019-07-29] MEDS: MONTELUKAST SODIUM 10 MG TAB PO SCH (21:05)
[2019-07-29] MEDS: IRON SUCROSE 100 MG in SODIUM CHLORIDE 0.9% 100 ML 100 ML IV SCH (21:05)
[2019-07-29] MEDS: ESCITALOPRAM OXALATE 10 MG TAB PO SCH (21:05)
[2019-07-29] MEDS ORDERED: HYDRALAZINE HCL 20 MG/ML VIAL IV PRN (21:15)
[2019-07-30] VITALS (24 sets, daily range): BP systolic 119–173; BP diastolic 74–97
[2019-07-30] MEDS: CEFEPIME 2 GM/NS 0.9% 100 ML 100 ML IV SCH ×3 (01:22→18:01)
[2019-07-30] MEDS: METHYLPREDNISOLONE SOD SUCC 40 MG/ML VIAL 1ML IV SCH ×3 (02:23→18:14)
[2019-07-30] MEDS: DEXMEDETOMIDINE 200MCG/NS 50ML 50 ML IV PRN ×7 (02:33→21:59)
[2019-07-30] MEDS: ALBUTEROL/IPRATROPIUM 3 ML NEB NEB SCH ×7 (03:00→23:40)
[2019-07-30] MEDS: MIDAZOLAM HCL 25 MG in SODIUM CHLORIDE 0.9% 45 ML IV PRN ×6 (03:11→22:06)
[2019-07-30] MEDS: FENTANYL CITRATE INJ 2000 MCG in SODIUM CHLORIDE 0.9% 210 ML IV PRN ×3 (03:46→18:03)
[2019-07-30] MEDS: LEVOTHYROXINE SODIUM 75 MCG TAB PO SCH (05:21)
[2019-07-30 05:36] LABS: BASOPHILS % 0.3 % (0.0-1.0); HEMATOCRIT 41.9 % (34.2-44.1); HEMOGLOBIN 11.8 g/dL (12.0-16.0); LYMPHOCYTES # (AUTO) 0.7 (1.0-3.2); LYMPHOCYTES % 8.9 % (18.0-39.1); MEAN CORPUSCULAR HEMOGLOBIN 21.2 pg (28-32); MEAN CORPUSCULAR HGB CONC 28.2 g/dL (31-35); MEAN CORPUSCULAR VOLUME 75.2 fL (81-99); MONOCYTES # (AUTO) 0.5 (0.2-0.8); MONOCYTES % 6.8 % (4.4-11.3); NEUTROPHILS # (AUTO) 6.1 (2.1-6.9); NEUTROPHILS % 83.5 % (38.7-80.0); PLATELET COUNT 172 x10e3/uL (140-360); RED BLOOD COUNT 5.57 x10e6/uL (3.6-5.1); RED CELL DISTRIBUTION WIDTH 22.2 % (11.7-14.4)
[2019-07-30 06:00] LABS: ALBUMIN 3.3 g/dL (3.5-5.0); ANION GAP 19.1 mmol/L (8-16); CALCIUM 10.1 mg/dL (8.4-10.2); CREATININE, SERUM 1.94 mg/dL (0.57-1.11); POTASSIUM 4.1 mmol/L (3.5-5.1)
[2019-07-30 06:01] LABS: ALBUMIN/GLOBULIN RATIO 0.7 (0.8-2.0)
[2019-07-30] MEDS: BUDESONIDE 0.5MG/2 ML NEB INH SCH ×2 (07:15→19:30)
[2019-07-30] MEDS ORDERED: HYDRALAZINE HCL 20 MG/ML VIAL IV PRN (08:30)
[2019-07-30] MEDS: LACTULOSE SYRUP 20 GM/30 ML UDC NG SCH ×2 (09:00→17:00)
[2019-07-30 11:02] LABS: ANISOCYTOSIS MODERATE; HYPOCHROMASIA MODERATE; MICROCYTOSIS MODERATE; PLATELET ESTIMATE ADEQUATE; PLATELET MORPHOLOGY COMMENT NORMAL; RBC MORPHOLOGY COMMENT ABNORMAL
--- NOTE | 2019-07-30 11:20 | Diagnostic Imaging Report ---
EXAMINATION: CHEST XRAY LINE PLACEMENT INDICATION: Line placement COMPARISON: Chest are graft of 07/29/2019 FINDINGS: Initial portable chest radiograph was nondiagnostic. Repeat imaging was performed in the radiology department and images used for interpretation. LINES/TUBES:Interval placement of right PICC line terminating in the superior vena cava. Endotracheal tube terminates approximately 2 cm above the kelle. Enteric tube projects below the diaphragm with tip not well visualized. LUNGS:The lung volumes are low. There is perihilar fullness and indistinctness of the pulmonary vasculature. PLEURA:No pleural effusion or pneumothorax. MEDIASTINUM:Cardiomediastinal silhouette is stably enlarged. BONES/SOFT TISSUES:No acute osseous injury. ABDOMEN:No free air under the diaphragm. IMPRESSION: Right PICC line terminates at the superior vena cava. Other lines and tubes as above. Low lung volumes. Pulmonary edema and unchanged cardiomegaly. Signed by: Geoffrey Godoy MD on 07/30/2019 11:16 AM
[2019-07-30] MEDS: PANTOPRAZOLE 40 MG 10ML VIAL IV SCH (11:23)
[2019-07-30] MEDS: ENOXAPARIN SOD INJ 40 MG/0.4 ML SYR SC SCH (11:23)
[2019-07-30] MEDS: BUMETANIDE 10 MG in SODIUM CHLORIDE 0.9% 100 ML 60 ML IV SCH ×2 (11:23→23:47)
--- NOTE | 2019-07-30 11:32 | Diagnostic Imaging Report ---
Exam: KUB - 2 views Indication: Enteric tube placement Comparison: <None.> Findings: NG tube projects below the diaphragm with tip and side-port in the stomach. Nonobstructive bowel gas pattern. No free air. Impression: NG tube with tip and side-port in the stomach. Signed by: Geoffrey Godoy MD on 07/30/2019 11:29 AM
--- NOTE | 2019-07-30 11:58 | Progress Note ---
DATE: 07/30/2019 Cardiology Progress Note SUBJECTIVE: Remains intubated and sedated. OBJECTIVE: VITAL SIGNS: Temperature 97.6, heart rate 54, blood pressure 162/87, respiratory rate 16, and O2 saturation 92%. BMI 72.9. GENERAL: In no acute distress, intubated, sedated. CHEST: With scattered rhonchi and wheezing. CARDIOVASCULAR: Regular rate and rhythm. Normal S1, S2. Distant heart sounds. ABDOMEN: Soft, morbidly obese. EXTREMITIES: With 1+ edema to both lower extremities. CARDIOVASCULAR MEDICATIONS: Reviewed. Receiving cefepime, furosemide 40 mg once and now Bumex drip 1 mg/hour, Lovenox 40 mg subcu daily, hydralazine p.r.n. 10 mg every 6 hours. STUDIES: Reviewed. Sodium 138, potassium 4.1, chloride 95, bicarbonate 28, BUN 36, creatinine 1.9, glucose 146. White blood cell 7.3, hemoglobin 11.8, and platelets 172. PT 15.2, PTT 29. INR 1.1. AST 56, ALT 24, alkaline phosphatase 110, total bilirubin 0.8. ASSESSMENT AND PLAN: 1. A 53-year-old woman presents with volume overload. 2. Hypercapnic respiratory failure. 3. Extreme morbid obesity, obstructive sleep apnea. RECOMMEND: 1. Continue inhalers and diuretics for yqryz-ll-nsahciu diastolic heart failure component. 2. Continue vent support and wean as tolerated. 3. Monitor renal function. The patient in renal failure, creatinine 1.9. Praveen Troncoso MD AFRosa/MODL /[id number]
--- NOTE | 2019-07-30 12:24 | Progress Note ---
DATE: SUBJECTIVE: Ms. Garcia is still in the intensive care unit, intubated. REVIEW OF SYSTEMS: Could not be obtained. PHYSICAL EXAMINATION: GENERAL: She is currently intubated. HEENT: Not icteric. CHEST: Clear. COR: S1 and S2. No S3, S4, or murmur. ABDOMEN: Soft and obese. SKIN: Her abdominal wall remains erythema, but better. IMPRESSION: 1. Cellulitis. 2. Obese patient. 3. Respiratory failure. 4. Continue with antibiotic as ordered. 5. Elevated vancomycin level. We will hold. 6. Acute kidney injury of chronic kidney disease. 7. We will follow. MD SHAYNA Burnett/MODL /[id number]
[2019-07-30 13:51] LABS: ABG HCO3 36 mmol/L (23-28); ABG PCO2 75 mmHg (41-51); ABG PH 7.29 (7.31-7.41); ABG PO2 118 mmHg (80-105)
--- NOTE | 2019-07-30 17:36 | Progress Note ---
DATE: SUBJECTIVE: Ms. Garcia remains in intensive care, intubated. Family at bedside. Review of systems could not be obtained. Apparently, the patient has been drinking heavily. She did not tell that when she first came here. REVIEW OF SYSTEMS: HEENT: Negative. PULMONARY: Negative. CARDIAC: Negative. OBJECTIVE: According to the nursing team: GENERAL: She is intubated, sedated, morbidly obese patient. HEENT: She is not icteric. NECK: Supple. CHEST: Clear. ABDOMEN: The redness has subsided significantly. ASSESSMENT: 1. Respiratory failure. 2. Morbidly obese patient. 3. Underlying sleep apnea. 4. Alcoholism. 5. Cellulitis of the abdominal wall, resolved. PLAN: Stable from Infectious Disease point of view. Antibiotic was adjusted. Please refer to the orders. Discussed with the medical team. Discussed with the family. MD SHAYNA Burnett/SCOOBY /[id number]
--- NOTE | 2019-07-30 18:37 | NUR ---
Nutrition Intervention Note RD Recommendation(s) for Physician: Recommend to initiate nutrition support if pt is to remain intubated -Vital High Protein @ goal rate of 50 mL/hr -Water flush per MD (provides 1200 kcal, 105 g protein, and 1003 mL water/fluid) Plan of Care: RD following, monitoring for tolerance and adequacy Nutrition reason for involvement: mechanical ventilation RD Assessment (07/30/19) Pt is a 53 year old female admitted with abdominal wall cellulitis. Pt was experiencing respiratory distress; therefore, pt was intubated. There were no family members present at bedside; therefore, nutrition history is limited. Recommend enteral nutrition if pt is to remain intubated. Discussed recommendations with RN. Will continue to monitor. Principal Problems/Diagnoses: abdominal wall cellulitis PMH: hypothyroid, obstructive sleep apnea, anxiety, morbid obesity, gastric bypass surgery I/O: 5121/3576 GI: soft, non-tender, large, round abdomen Skin: no pressure ulcers documented Labs: (07/30/19) BUN 36, Creat 1.94, Glu 146, Mg 2.2 Meds: midazolam. Methylprednisolone, bumetanide, pantoprazole, lovenox, fentanyl, iron sucrose, zofran, lactulose, levothyroxine, hydralazine Ht: 61 inches Wt: 386 lbs BMI: 73 kg/m2 IBW: 105 lbs Malnutrition Evaluation (07/30/19) The patient does not meet criteria for a specified degree of malnutrition at this time. Will re-evaluate at follow-up as appropriate. Nutrition Prescription (Diet Order): NPO Estimated Nutritional Needs: 1591-8960 calories/day (22-25 kcal/kg IBW) 72-119 g protein/day (1.5-2.5 g pro/kg IBW) Diet Adequacy: Not meeting calorie needs, Not meeting protein needs (pt is NPO) Tolerance: Pt is NPO Diet Education Needs Assessment: Diet education not indicated at this time Nutrition Care Level: moderate Nutrition Diagnosis: Swallowing difficulty related to mechanical ventilation as evidenced by NPO status Goal: Patient will meet 75-100% of estimated needs by follow up Progress: N/A Interventions: -Tube feeding recommendation - Composition, Rate, Route, Collaboration with other providers Monitoring/Evaluation: -Total energy intake, Total protein intake, Formula/Solution, IVF, Prescription medication, Weight change Signed: Josiane Rutledge RD, LD
--- NOTE | 2019-07-30 19:00 | NUR ---
Report received. Assumed care. Assessment done. See interventions. IVs: Precedex @ 0.4mcg/kg/hr or 21 ml/hr, Versed @ 10 mg/hr or 20ml/hr, Fentanyl @ 300 mcg/hr or 37.5 ml/hr & Bumex @ 1 mg/hr or 10 ml/hr. Orally intubated with 7.5 FR ETT secured at 23 cm at the lip.
[2019-07-30] MEDS: ESCITALOPRAM OXALATE 10 MG TAB PO SCH (21:02)
[2019-07-30] MEDS: MONTELUKAST SODIUM 10 MG TAB PO SCH (21:02)
[2019-07-30] MEDS: IRON SUCROSE 100 MG in SODIUM CHLORIDE 0.9% 100 ML 100 ML IV SCH (22:45)
[2019-07-31] VITALS (25 sets, daily range): BP systolic 108–151; BP diastolic 68–120
[2019-07-31] MEDS: DEXMEDETOMIDINE 200MCG/NS 50ML 50 ML IV PRN ×5 (00:35→21:45)
[2019-07-31] MEDS: MIDAZOLAM HCL 25 MG in SODIUM CHLORIDE 0.9% 45 ML IV PRN ×8 (01:21→23:18)
[2019-07-31] MEDS: FENTANYL CITRATE INJ 2000 MCG in SODIUM CHLORIDE 0.9% 210 ML IV PRN ×3 (01:21→20:13)
[2019-07-31] MEDS: CEFEPIME 2 GM/NS 0.9% 100 ML 100 ML IV SCH ×3 (01:22→16:11)
[2019-07-31] MEDS: METHYLPREDNISOLONE SOD SUCC 40 MG/ML VIAL 1ML IV SCH ×3 (02:18→17:21)
--- NOTE | 2019-07-31 02:30 | NUR ---
Dr. Bruce Ellison here. Orders given for Jevity 1.2 tube feeding. supervisor denture department advised of need for feeding pump. None available on the unit.
[2019-07-31] MEDS: ALBUTEROL/IPRATROPIUM 3 ML NEB NEB SCH ×5 (03:22→19:00)
[2019-07-31] MEDS: BUMETANIDE 10 MG in SODIUM CHLORIDE 0.9% 100 ML 60 ML IV SCH ×2 (04:30→09:02)
[2019-07-31 05:06] LABS: HEMATOCRIT 41.9 % (34.2-44.1); HEMOGLOBIN 11.7 g/dL (12.0-16.0); LYMPHOCYTES # (AUTO) 0.6 (1.0-3.2); LYMPHOCYTES % 8.6 % (18.0-39.1); MEAN CORPUSCULAR HEMOGLOBIN 21.2 pg (28-32); MEAN CORPUSCULAR HGB CONC 27.9 g/dL (31-35); MONOCYTES # (AUTO) 0.5 (0.2-0.8); MONOCYTES % 6.3 % (4.4-11.3); NEUTROPHILS # (AUTO) 6.2 (2.1-6.9); NEUTROPHILS % 84.6 % (38.7-80.0); PLATELET COUNT 175 x10e3/uL (140-360); RED BLOOD COUNT 5.51 x10e6/uL (3.6-5.1); RED CELL DISTRIBUTION WIDTH 22.3 % (11.7-14.4)
[2019-07-31 05:25] LABS: ANION GAP 17.7 mmol/L (8-16); CALCIUM 9.9 mg/dL (8.4-10.2); CREATININE, SERUM 1.78 mg/dL (0.57-1.11); POTASSIUM 3.7 mmol/L (3.5-5.1)
[2019-07-31] MEDS: LEVOTHYROXINE SODIUM 75 MCG TAB PO SCH (05:29)
[2019-07-31] MEDS: BUDESONIDE 0.5MG/2 ML NEB INH SCH ×2 (07:49→19:00)
--- NOTE | 2019-07-31 08:26 | Diagnostic Imaging Report ---
EXAM: CHEST SINGLE (PORTABLE) DATE: 07/31/2019 7:00 AM INDICATION: Intubated COMPARISON: 07/30/2019 FINDINGS: Please note the examination is limited secondary to patient's body habitus and portable technique. Endotracheal tube tip terminating approximately 2.6 cm above the kelle. Right upper extremity PICC line identified over the SVC. Enteric tube noted coursing below the diaphragm. Lung volumes remain low. There are increased bilateral interstitial and airspace opacities as well as prominence of the central pulmonary procedure, findings are unchanged from the prior examination and may reflect edema. There is no evidence for large focal consolidation or pneumothorax. There is blunting of the left costophrenic angle and a small effusion is possible. The cardiomediastinal silhouette is stable in appearance. IMPRESSION: No significant interval change from 07/30/2019. Findings suggestive of pulmonary edema. Signed by: Dr. Steve Collins MD on 07/31/2019 8:23 AM
[2019-07-31] MEDS: ENOXAPARIN SOD INJ 40 MG/0.4 ML SYR SC SCH (09:03)
[2019-07-31] MEDS: PANTOPRAZOLE 40 MG 10ML VIAL IV SCH (09:03)
[2019-07-31] MEDS: THIAMINE HCL 100 MG TAB NG SCH (15:54)
--- NOTE | 2019-07-31 19:00 | NUR ---
Report received. Assumed care. Assessment done. See interventions. Orally intubated with 7.5 FR ETT secured at 23cm at the lip. Vent settings: TV 450, FIO2 40%, PRVC 10 & PEEP 8cm. IVS: Precedex @ 0.4mcg/kg/hr or 17.5ml/hr, Versed @ 10mg/hr or 20ml/hr, and Fentanyl @ 300mcg/hr or 37.5ml/hr. OGT with Jevity 1.2 TF @ 10ml/hr.
--- NOTE | 2019-07-31 20:00 | NUR ---
Dr. Somers here. Status report given. No new orders.
[2019-07-31] MEDS: ESCITALOPRAM OXALATE 10 MG TAB PO SCH (21:34)
[2019-07-31] MEDS: MONTELUKAST SODIUM 10 MG TAB PO SCH (21:34)
[2019-07-31] MEDS: IRON SUCROSE 100 MG in SODIUM CHLORIDE 0.9% 100 ML 100 ML IV SCH (21:35)
--- NOTE | 2019-07-31 23:27 | Progress Note ---
DATE: 07/31/2019 Cardiology Progress Note SUBJECTIVE: Intubated and sedated. OBJECTIVE: VITAL SIGNS: Temperature 98.6, heart rate 101 with sinus tachycardia on telemetry, blood pressure 126/91, respiratory rate 19, O2 saturation 97% on vent support. GENERAL: No acute distress, intubated, sedated. CHEST: Decreased breath sounds. Clear to auscultation otherwise. CARDIOVASCULAR: Regular rate and rhythm. Normal S1, S2. ABDOMEN: Soft. EXTREMITIES: Trace edema. Cardiovascular medication reviewed. Bumex has been discontinued and hydralazine p.r.n. STUDIES: Reviewed. Remarkable for creatinine 1.78 and a BUN of 43, bicarbonate of 34, potassium 3.7, and hemoglobin 11.7. ASSESSMENT AND PLAN: A 53-year-old woman with extreme morbid obesity, obstructive sleep apnea, acute respiratory failure now status post intubation on vent support, acute diastolic heart failure recommend, agree with diuretics holiday as the patient has become prerenal with increasing creatinine, seems to have achieved euvolemic state. Continue vent weaning as per Pulmonary Critical Care's direction and continue p.r.n. antihypertensives. MD FERMÍN Tarango/SCOOBY /[id number]
[2019-08-01] VITALS (26 sets, daily range): BP systolic 118–166; BP diastolic 78–104
[2019-08-01] MEDS: CEFEPIME 2 GM/NS 0.9% 100 ML 100 ML IV SCH ×3 (01:24→16:17)
[2019-08-01] MEDS: DEXMEDETOMIDINE 200MCG/NS 50ML 50 ML IV PRN ×3 (01:25→19:59)
[2019-08-01] MEDS: MIDAZOLAM HCL 25 MG in SODIUM CHLORIDE 0.9% 45 ML IV PRN ×2 (02:27→05:45)
[2019-08-01] MEDS: METHYLPREDNISOLONE SOD SUCC 40 MG/ML VIAL 1ML IV SCH ×3 (02:31→19:06)
[2019-08-01] MEDS: FENTANYL CITRATE INJ 2000 MCG in SODIUM CHLORIDE 0.9% 210 ML IV PRN (03:37)
[2019-08-01] MEDS: ALBUTEROL/IPRATROPIUM 3 ML NEB NEB SCH ×6 (03:40→23:00)
--- NOTE | 2019-08-01 04:24 | NUR ---
Complete bed bath given. New glider & pad replaced. Repositioned up in bed. Tube feeding held for bath then resumed after bath.
[2019-08-01 05:10] LABS: BASOPHILS % 0.1 % (0.0-1.0); HEMATOCRIT 43.3 % (34.2-44.1); HEMOGLOBIN 11.3 g/dL (12.0-16.0); LYMPHOCYTES # (AUTO) 0.7 (1.0-3.2); LYMPHOCYTES % 5.9 % (18.0-39.1); MEAN CORPUSCULAR HEMOGLOBIN 21.6 pg (28-32); MEAN CORPUSCULAR HGB CONC 26.1 g/dL (31-35); MEAN CORPUSCULAR VOLUME 82.6 fL (81-99); MONOCYTES # (AUTO) 0.8 (0.2-0.8); MONOCYTES % 6.7 % (4.4-11.3); NEUTROPHILS # (AUTO) 9.8 (2.1-6.9); NEUTROPHILS % 86.9 % (38.7-80.0); PLATELET COUNT 164 x10e3/uL (140-360); RED BLOOD COUNT 5.24 x10e6/uL (3.6-5.1); RED CELL DISTRIBUTION WIDTH 22.8 % (11.7-14.4)
[2019-08-01 05:34] LABS: ALBUMIN 3.4 g/dL (3.5-5.0); ALBUMIN/GLOBULIN RATIO 0.8 (0.8-2.0); ANION GAP 18.2 mmol/L (8-16); CALCIUM 8.9 mg/dL (8.4-10.2); CREATININE, SERUM 2.64 mg/dL (0.57-1.11); POTASSIUM 4.2 mmol/L (3.5-5.1)
[2019-08-01] MEDS: LEVOTHYROXINE SODIUM 75 MCG TAB PO SCH (06:05)
[2019-08-01] MEDS: BUDESONIDE 0.5MG/2 ML NEB INH SCH ×2 (07:00→19:05)
[2019-08-01] MEDS: ENOXAPARIN SOD INJ 40 MG/0.4 ML SYR SC SCH (08:24)
[2019-08-01] MEDS: THIAMINE HCL 100 MG TAB NG SCH (08:24)
[2019-08-01] MEDS: PANTOPRAZOLE 40 MG 10ML VIAL IV SCH (08:24)
--- NOTE | 2019-08-01 08:34 | Diagnostic Imaging Report ---
Chest, 1 view, 08/01/2019. History: Intubated. Comparison: 07/31/2019. Findings: The cardiomediastinal silhouette and pulmonary vasculature are prominent with diffuse bilateral alveolar opacities, left greater than right, with obscuration of the left hemidiaphragm. ET tube and NG tube are unchanged in position. There are no acute osseous or soft tissue abnormalities. Impression: CHF with left basilar atelectasis/pleural effusion. Signed by: Wil Perez on 08/01/2019 8:31 AM
--- NOTE | 2019-08-01 11:30 | Progress Note ---
DATE: 08/01/2019 Cardiology Progress Note SUBJECTIVE: Remains intubated and sedated. OBJECTIVE: VITAL SIGNS: Temperature 96.4, heart rate 56, blood pressure 138/89, respiratory rate 12, and O2 saturation 97%. BMI 73.8. GENERAL: Intubated, sedated. CHEST: Decreased breath sounds in bilateral bases. CARDIOVASCULAR: Regular rate and rhythm. Normal S1, S2. ABDOMEN: Soft and obese. EXTREMITIES: Trace edema. CARDIOVASCULAR MEDICATIONS: Reviewed. Hydralazine 10 mg q.6 hours, Lovenox 40 mg subcu daily. Diuretics on hold. STUDIES: Reviewed. Sodium 140, potassium 4.2, chloride 92, bicarbonate 34, BUN 60, creatinine 2.6, glucose 127. White blood cells 11.2, hemoglobin 11.3, and platelets 164. PT 15.2, PTT 29. INR 1.1. AST 126, ALT 57, alkaline phosphatase 295, total bilirubin 0.8. ASSESSMENT AND PLAN: A 53-year-old woman with acute respiratory failure in the setting of morbid obesity, hypercapnia, volume overload, now with acute renal failure, prolonged ventilation, wsfys-dd-sklcemm diastolic heart failure, hypertension. RECOMMEND: Continue current cardiovascular medications including diuretic holiday and monitor renal function and electrolyte. Continue vent weaning as tolerated. Praveen Troncoso MD AFV/MODL /[id number]
[2019-08-01 12:48] LABS: LYMPHOCYTES % (MANUAL) 6 % (19-48); MONOCYTES % (MANUAL) 5 % (3.4-9.0); NEUTROPHILS % (MANUAL) 89 % (40-74)
[2019-08-01 12:49] LABS: PLATELET ESTIMATE ADEQUATE; PLATELET MORPHOLOGY COMMENT NORMAL; RBC MORPHOLOGY COMMENT NORMAL
--- NOTE | 2019-08-01 15:58 | Progress Note ---
DATE: 08/01/2019 SUBJECTIVE: Remains intubated, output has been trending down. She has been off the diuretics due to concerns for prerenal azotemia. She is still, however, net negative about 2 L yesterday. PHYSICAL EXAMINATION: GENERAL: Lying in bed. VITAL SIGNS: Temperature is 96.4, pulse 52, and blood pressure 147/90. CHEST: Scattered rhonchi. EXTREMITIES: Trace edema. SKIN: Wrinkled. NEURO: Appears sedated. LABORATORY DATA: Chest x-ray still showing CHF with pleural effusion. Blood gas did show elevated pCO2 of 75 two days ago. ASSESSMENT: Acute kidney injury, likely cardiorenal syndrome, given the UA was relatively bland, fluid overload, consider tubular necrosis, respiratory acidosis. PLAN: Given that the chemistries will worsen and she is still net negative. Favored continue to hold diuretics for now. Monitor I's and O's, avoid NSAIDs and other nephrotoxins, would avoid high pCO2 levels as they can cause renal vasoconstriction. We will defer that to Pulmonary service . MD RAFI Hernandez/MODAlexis /[id number] TERRIE
--- NOTE | 2019-08-01 18:48 | Progress Note ---
DATE: SUBJECTIVE: Ms. Garcia remains on the ventilator. REVIEW OF SYSTEMS: Could not be obtained. Her at the bedside. Discussed with medical team. LABORATORY DATA: Her white count is 11.28 and hemoglobin 11.3. Her sodium 140 and potassium 4.2. PHYSICAL EXAMINATION: GENERAL: She is intubated, sedated. VITAL SIGNS: Stable. There is no fever. Temperature 96.4. HEENT: Normocephalic. NECK: Supple. HEART: Assessed because she is obese with a short neck. ABDOMEN: Soft and obese. EXTREMITIES: There is no redness or swelling. IMPRESSION: 1. Cellulitis of the wound, resolved. 2. Respiratory failure. 3. Obesity. 4. Acute kidney injury. 5. History of alcoholism, still active. 6. Respiratory acidosis. 7. Congestive heart failure. From Infectious Disease point of view, can discontinue antibiotic. We will discontinue cefepime. Wean down her steroid. The patient is on dexamethasone. The patient is at risk for aspiration pneumonia. Discussed with the . We will follow. MD SHAYNA Burnett/MODL /[id number]
[2019-08-01] MEDS: ESCITALOPRAM OXALATE 10 MG TAB PO SCH (20:42)
[2019-08-01] MEDS: MONTELUKAST SODIUM 10 MG TAB PO SCH (20:42)
[2019-08-01] MEDS: IRON SUCROSE 100 MG in SODIUM CHLORIDE 0.9% 100 ML 100 ML IV SCH (21:30)
[2019-08-01 21:39] LABS: CREATININE,URINE RANDOM 81.4 mg/dL (47-110)
[2019-08-02] VITALS (25 sets, daily range): BP systolic 120–175; BP diastolic 72–103
[2019-08-02] MEDS: METHYLPREDNISOLONE SOD SUCC 40 MG/ML VIAL 1ML IV SCH ×3 (02:00→17:21)
[2019-08-02] MEDS: ALBUTEROL/IPRATROPIUM 3 ML NEB NEB SCH ×6 (02:35→23:10)
[2019-08-02 05:07] LABS: BASOPHILS % 0.1 % (0.0-1.0); HEMATOCRIT 42.7 % (34.2-44.1); HEMOGLOBIN 11.5 g/dL (12.0-16.0); LYMPHOCYTES # (AUTO) 0.5 (1.0-3.2); LYMPHOCYTES % 5.4 % (18.0-39.1); MEAN CORPUSCULAR HEMOGLOBIN 21.7 pg (28-32); MEAN CORPUSCULAR HGB CONC 26.9 g/dL (31-35); MEAN CORPUSCULAR VOLUME 80.6 fL (81-99); MONOCYTES # (AUTO) 0.5 (0.2-0.8); MONOCYTES % 5.2 % (4.4-11.3); NEUTROPHILS # (AUTO) 8.3 (2.1-6.9); NEUTROPHILS % 88.8 % (38.7-80.0); PLATELET COUNT 126 x10e3/uL (140-360); RED CELL DISTRIBUTION WIDTH 22.6 % (11.7-14.4)
[2019-08-02 05:32] LABS: ANION GAP 17.1 mmol/L (8-16); CALCIUM 9.2 mg/dL (8.4-10.2); CREATININE, SERUM 2.14 mg/dL (0.57-1.11); POTASSIUM 4.1 mmol/L (3.5-5.1)
[2019-08-02] MEDS: LEVOTHYROXINE SODIUM 75 MCG TAB PO SCH (05:39)
[2019-08-02] MEDS: BUDESONIDE 0.5MG/2 ML NEB INH SCH ×2 (07:20→19:10)
[2019-08-02] MEDS ORDERED: FUROSEMIDE INJ 10 MG/ML 4 ML VIAL IV ONE (07:45)
[2019-08-02] MEDS: THIAMINE HCL 100 MG TAB NG SCH (08:05)
[2019-08-02] MEDS: PANTOPRAZOLE 40 MG 10ML VIAL IV SCH (08:05)
[2019-08-02] MEDS: ENOXAPARIN SOD INJ 40 MG/0.4 ML SYR SC SCH (08:06)
--- NOTE | 2019-08-02 11:04 | Progress Note ---
DATE: 08/02/2019 SUBJECTIVE: Remains on the ventilator. Sedation has been turned off. OBJECTIVE: VITAL SIGNS: Heart rate somewhat low, but stable in the 45 range. Temperature 96.3, blood pressure 126/76. HEENT: Atraumatic, orally intubated. CHEST: Scattered rhonchi. NECK: Thick. EXTREMITIES: Trace edema, sacral. LABORATORY DATA: Creatinine is 2.1, BUN 74, serum CO2 of 33. UA was done revealed bland with no casts reported, however, some bacteria were seen before; thus far, cultures are negative. ASSESSMENT: 1. Acute kidney injury, suspect acute tubular necrosis from the pneumonia/cellulitis given clinical course over the last 2 days 2. Fluid overload. PLAN: One dose of Lasix. Monitor I's and O's. No emergent need for dialysis. We will follow along. MD RAFI Hernandez/SCOOBY /[id number]
--- NOTE | 2019-08-02 11:27 | NUR ---
WOUND CARE CONSULT/ SCREENING 53 YO FEMALE HARRIETT 11 ON STRICT PUP STATUS AND ALTERNATING PRESSURE SURFACE PATIENT SCREENED FOR POTENTIAL SKIN CONDITIONS R/T LOW HARRIETT SCORE (11) SKIN ASSESSMENT COMPLETE NO SKIN BREAK DOWN OR WOUNDS NOTED NURSING TO CONTINUE TO MONITOR PATIENT AND MAINTAIN STRICT PUP STATUS AND INTERVENTIONS NURSING TO RECONSULT WOUND CARE IF IN FUTURE THERE ARE ANY SKIN CARE CONCERNS OR WOUND CARE NEEDED Addendum: 08/02/19 at 1128 by Kota Stovall RN Amended: Links added.
--- NOTE | 2019-08-02 11:51 | Diagnostic Imaging Report ---
EXAMINATION: CHEST SINGLE (PORTABLE) INDICATION: Intubation COMPARISON: Chest radiograph of 08/01/2019 FINDINGS: LINES/TUBES:Endotracheal tube terminates approximately 3 cm above the kelle. EKG leads overlie the chest. LUNGS:Lung volumes are low. There is perihilar fullness and indistinctness of the pulmonary vasculature. PLEURA:Likely small left pleural effusion. No pneumothorax. MEDIASTINUM:Cardiomediastinal silhouette is stably enlarged. BONES/SOFT TISSUES:No acute osseous injury. ABDOMEN:No free air under the diaphragm. IMPRESSION: No significant interval change in low lung volumes, cardiomegaly, and pulmonary edema. Signed by: Geoffrey Godoy MD on 08/02/2019 11:47 AM
[2019-08-02 12:45] LABS: BAND NEUTROPHILS % (MANUAL) 12 %; LYMPHOCYTES % (MANUAL) 3 % (19-48); MONOCYTES % (MANUAL) 4 % (3.4-9.0); NEUTROPHILS % (MANUAL) 81 % (40-74); RBC MORPHOLOGY COMMENT ABNORMAL
[2019-08-02 12:46] LABS: ANISOCYTOSIS SLIGHT; HYPOCHROMASIA SLIGHT; PLATELET ESTIMATE ADEQUATE; PLATELET MORPHOLOGY COMMENT NORMAL; POIKILOCYTOSIS SLIG
--- NOTE | 2019-08-02 17:39 | NUR ---
Follow up Note RD Recommendation(s) for Physician: Recommend modifying tube feeding to Vital High Protein @ goal rate of 50 mL/hr -Water flush per MD (provides 1200 kcal, 105 g protein, and 1003 mL water/fluid) Plan of Care: RD following, monitoring for tolerance and adequacy Nutrition reason for involvement: follow up RD Assessment (08/02/19) Follow up. Pt remains intubated and Jevity 1.2 tube feeding diet order was placed on 07/31. Pt is tolerating tube feeding per RN. Discussed recommendation of modifying tube feeding to Vital High Protein with RN. Will continue to monitor. (07/30/19) Pt is a 53 year old female admitted with abdominal wall cellulitis. Pt was experiencing respiratory distress; therefore, pt was intubated. There were no family members present at bedside; therefore, nutrition history is limited. Recommend enteral nutrition if pt is to remain intubated. Discussed recommendations with RN. Will continue to monitor. Principal Problems/Diagnoses: abdominal wall cellulitis PMH: hypothyroid, obstructive sleep apnea, anxiety, morbid obesity, gastric bypass surgery I/O: 2510/1350 GI: soft, non-tender, large, abdomen Skin: no pressure ulcers documented Labs: (08/02/19) BUN 74, Creat 2.14, Glu 150, BNP 301 (07/30/19) BUN 36, Creat 1.94, Glu 146, Mg 2.2 Meds: methylprednisolone, thiamine, protonix, levothyroxine, iron sucrose, fentanyl, zofran, hydralazine Ht: 61 inches Wt: 392 lbs 386 lbs (07/30/19) BMI: 74.1 kg/m2 IBW: 105 lbs Malnutrition Evaluation (07/30/19) The patient does not meet criteria for a specified degree of malnutrition at this time. Will re-evaluate at follow-up as appropriate. Unable to assess. Nutrition Prescription (Diet Order): Jevity 1.2 @ 30 mL/hr Estimated Nutritional Needs: 0765-7979 calories/day (22-25 kcal/kg IBW) 72-119 g protein/day (1.5-2.5 g pro/kg IBW) Diet Adequacy: Not meeting calorie needs, Not meeting protein needs with current tube feed order Tolerance: Tolerating tube feeding Diet Education Needs Assessment: Diet education not indicated at this time Nutrition Care Level: high Nutrition Diagnosis: Swallowing difficulty related to mechanical ventilation as evidenced by need for enteral nutrition Goal: Patient will meet 75-100% of estimated needs by follow up Progress: not progressing toward goal with current tube feed order Interventions: -Tube feeding recommendation - Composition, Rate, Route, Collaboration with other providers Monitoring/Evaluation: -Total energy intake, Total protein intake, Formula/Solution, IVF, Prescription medication, Weight change Signed: Josaine Rutledge RD, LD
[2019-08-02] MEDS: FENTANYL CITRATE INJ 2000 MCG in SODIUM CHLORIDE 0.9% 210 ML IV PRN (20:00)
[2019-08-02] MEDS: MIDAZOLAM HCL 25 MG in SODIUM CHLORIDE 0.9% 45 ML IV PRN (20:00)
[2019-08-02] MEDS: DEXMEDETOMIDINE 200MCG/NS 50ML 50 ML IV PRN (20:22)
[2019-08-02 21:02] LABS: ABG HCO3 36 mmol/L (23-28); ABG PCO2 54 mmHg (41-51); ABG PH 7.43 (7.31-7.41); ABG PO2 82 mmHg (80-105)
[2019-08-02] MEDS: MONTELUKAST SODIUM 10 MG TAB PO SCH (21:02)
[2019-08-02] MEDS: ESCITALOPRAM OXALATE 10 MG TAB PO SCH (21:02)
--- NOTE | 2019-08-02 21:33 | Progress Note ---
DATE: 08/02/2019 Cardiology Progress Note. SUBJECTIVE: Intubated, sedated. OBJECTIVE: VITAL SIGNS: Temperature 97.9, heart rate 53, respiratory rate 14, blood pressure 146/90, O2 saturation 97% on vent support. GENERAL: Intubated sedated. NECK: Supple. CHEST: Scattered rhonchi. CARDIOVASCULAR: Regular rate and rhythm. Normal S1, S2. No S3 or S4. Systolic ejection murmur. ABDOMEN: Soft. EXTREMITIES: Trace edema. Cardiovascular medications reviewed methylprednisolone 20 mg IV every 8 hours, hydralazine p.r.n. 10 mg IV. LABORATORY STUDIES: White blood cells 9.3, hemoglobin 11.5, platelets 126. ABG 7.29/75/118. Sodium 142, potassium 4.1, creatinine 2.1, bicarbonate 33, glucose 163. ASSESSMENT: 1. Acute renal failure. 2. Volume overload status post diuresis. 3. Acute on chronic diastolic heart failure. 4. Respiratory failure, acute in the setting of morbid obesity, hypercapnic respiratory failure. 5. Obstructive sleep apnea. 6. History of hypertension. Recommend continue to hold diuretics. 7. Appreciated renal input. 8. Antibiotics per ID. 9. Wean vent support as tolerated. If prolonged vent require may benefit from consideration of tracheostomy. Deferred to Pulmonary Critical Care. Praveen Troncoso MD AFRosa/MODL /[id number]
[2019-08-02] MEDS: IRON SUCROSE 100 MG in SODIUM CHLORIDE 0.9% 100 ML 100 ML IV SCH (21:58)
[2019-08-03] VITALS (23 sets, daily range): BP systolic 122–187; BP diastolic 69–117
[2019-08-03] MEDS: METHYLPREDNISOLONE SOD SUCC 40 MG/ML VIAL 1ML IV SCH ×3 (01:36→18:09)
[2019-08-03] MEDS: DEXMEDETOMIDINE 200MCG/NS 50ML 50 ML IV PRN ×2 (02:17→05:01)
[2019-08-03] MEDS: ALBUTEROL/IPRATROPIUM 3 ML NEB NEB SCH ×6 (03:10→23:10)
[2019-08-03] MEDS: LEVOTHYROXINE SODIUM 75 MCG TAB PO SCH (05:00)
[2019-08-03 05:20] LABS: BASOPHILS % 0.1 % (0.0-1.0); HEMATOCRIT 43.9 % (34.2-44.1); HEMOGLOBIN 11.5 g/dL (12.0-16.0); LYMPHOCYTES # (AUTO) 0.5 (1.0-3.2); LYMPHOCYTES % 5.6 % (18.0-39.1); MEAN CORPUSCULAR HEMOGLOBIN 21.4 pg (28-32); MEAN CORPUSCULAR HGB CONC 26.2 g/dL (31-35); MEAN CORPUSCULAR VOLUME 81.6 fL (81-99); MONOCYTES # (AUTO) 0.4 (0.2-0.8); MONOCYTES % 4.2 % (4.4-11.3); NEUTROPHILS # (AUTO) 8.3 (2.1-6.9); NEUTROPHILS % 89.3 % (38.7-80.0); PLATELET COUNT 126 x10e3/uL (140-360); RED BLOOD COUNT 5.38 x10e6/uL (3.6-5.1); RED CELL DISTRIBUTION WIDTH 23.2 % (11.7-14.4)
[2019-08-03 05:38] LABS: ALBUMIN 3.4 g/dL (3.5-5.0); ALBUMIN/GLOBULIN RATIO 0.8 (0.8-2.0); ANION GAP 19.1 mmol/L (8-16); CALCIUM 9.6 mg/dL (8.4-10.2); CREATININE, SERUM 1.99 mg/dL (0.57-1.11); POTASSIUM 4.1 mmol/L (3.5-5.1)
[2019-08-03] MEDS: BUDESONIDE 0.5MG/2 ML NEB INH SCH ×2 (07:22→19:40)
[2019-08-03] MEDS ORDERED: ACETAZOLAMIDE SODIUM 500 MG/VIAL IV ONE (07:50)
[2019-08-03] MEDS ORDERED: FUROSEMIDE INJ 10 MG/ML 4 ML VIAL IV SCH (09:00)
[2019-08-03] MEDS: FAMOTIDINE 20 MG/2 ML VIAL IV SCH ×2 (10:30→18:09)
[2019-08-03] MEDS: THIAMINE HCL 100 MG TAB NG SCH (10:31)
--- OUTSIDE RECORDS SUMMARY | 2019-08-03 11:03 | XMS REPORT ---
Author Author Admin, [place] Organization [facility] Address [address] [place] [address] Phone ;[phone] Allergies, Adverse Reactions, Alerts Allergy Name Reaction Description Start Date Severity Status Provider No Known Allergies Katie Vera CMA Conditions or Problems Problem Name Problem Code Onset Date Status Entry Date Provider Comment Standard Description Annotate Asthma 493.90 Active Alethea Galindo MD Asthma, unspecified CELLULITIS,abdominal wall 682.9 Active Alethea Galindo MD Cellulitis and abscess of unspecified sites Obesity hypoventilation syndrome 278.03 Active Alethea Galindo MD Obesity hypoventilation syndrome Panniculitis,abdominal wall 729.30 Active Alethea Galindo MD Panniculitis, unspecified site Urinary incontinence 788.30 Active Alethea Galindo MD Urinary incontinence, unspecified Medication List Medication Instructions Start Date Stop Date Generic Name NDC Status Provider Patient Instruction BREO ELLIPTA 100-25 MCG/INH INHALATION AEROSOL POWDER BREATH ACTIVATED 2 puffs once daily FLUTICASONE FUROATE-VILANTEROL 69944454195 Active Alethea Galindo MD Active IBUPROFEN 800 MG ORAL TABLET 1 by mouth every 8 hours as needed IBUPROFEN 68933285433 Active Alethea Galindo MD Active IPRATROPIUM-ALBUTEROL 0.5-2.5 (3) MG/3ML INHALATION SOLUTION 1 vial every 6-8 hrs as needed fr shortness of breath IPRATROPIUM-ALBUTEROL 43327020292 Active Alethea Galindo MD Active LASIX 40 MG ORAL TABLET 1 by mouth every am FUROSEMIDE 15963571588 Active Alethea Galindo MD Active MONTELUKAST SODIUM 10 MG ORAL TABLET One tablet once daily MONTELUKAST SODIUM 76768360642 Active Alethea Galindo MD Active VENTOLIN HFA 108 (90 BASE) MCG/ACT INHALATION AEROSOL SOLUTION 2 puffs every 4 - 6 hours as needed ALBUTEROL SULFATE 05143159325 Active Alethea Galindo MD Active Vital Signs Date Name Value Unit Range Description blood pressure, diastolic 91 mm[Hg] BP [place] blood pressure, systolic 146 mm[Hg] BP sys height E&M 61 [in_us] Bdy height pulse rate E&M 83 /min Heart rate respiratory rate E&M 20 /min Resp rate temperature E&M 98.7 [degF] Body temperature weight E&M 383 [lb_av] Weight Measured Diagnostic Results Date Name Value Unit Range Description Office Visit: Acute Visit - Urinalysis urine color yellow bilirubin, urine negative glucose, urine, semiquantitative negative appearance, urine clear blood in urine (hemoglobin) by dipstick negative leukocyte esterase, urine, by dipstick negative urobilinogen, urine, semiquantitative (dipstick) negative protein, urine, semiquantitative (dipstick) trace specific gravity, urine 1.025 pH, urine, semiquantitative 5.0 nitrite, urine, semiquantitative negative ketones, urine, by test strip negative Encounters Date Encounter Provider Code Facility 16:08:00 CDT Ofc Vst, New Level IV Alethea Galindo MD [id number] [facility] Procedures Code Procedure Name Date Entry Date Standard Description CPT-10855 Urinalysis - Dip only - In House 10:47:03 CDT
--- OUTSIDE RECORDS SUMMARY | 2019-08-03 11:03 | XMS REPORT ---
[facility] Address Unknown Phone Unavailable Care Team Providers Care Biomechanical Engineer Name Role Phone SUSAN GLORIA Unavailable Unavailable Problems This patient has no known problems. Allergies, Adverse Reactions, Alerts This patient has no known allergies or adverse reactions. Medications This patient has no known medications. Results Test Description Test Time Test Comments Text Results Atomic Results Result Comments CHEST SINGLE (PORTABLE) 2019-08-02 11:44:00 [place] [address] Patient Name: RANDY GORMAN MR #: [id number] : 1965 Age/Sex: 53/F Req #: [id number] Adm Physician: SUSAN GLORIA MD Ordered by: KRISTINE MENDOZA MD Report #: [id number] Location: ICU Room/Bed: ICU [facility] Procedure: [id number] DX/CHEST SINGLE (PORTABLE) Exam Date: 08/02/19 Exam Time: 1050 REPORT STATUS: Signed EXAMINATION: CHEST SINGLE (PORTABLE) INDICATION: Intubation COMPARISON: Chest radiograph of 08/01/2019 FINDINGS: LINES/TUBES:Endotracheal tube terminates approximately 3 cm above the kelle. EKG leads overlie the chest. LUNGS:Lung volumes are low. There is perihilar fullness and indistinctness of the pulmonary vasculature. PLEURA:Likely small left pleural effusion. No pneumothorax. MEDIASTINUM:Cardiomediastinal silhouette is stably enlarged. BONES/SOFT TISSUES:No acute osseous injury. ABDOMEN:No free air under the diaphragm. IMPRESSION: No significant interval change in low lung volumes, cardiomegaly, and pulmonary edema. Signed by: Simone Romeo MD on 08/02/2019 11:47 AM Dictated By: SIMONE ROMEO MD 1147 Transcribed By: VANE on 08/02/19 1147 COPY TO: KRISTINE MENDOZA MD CHEST SINGLE (PORTABLE) 2019-08-01 08:28:00 [place] [address] Patient Name: RANDY GORMAN MR #: [id number] : 1965 Age/Sex: 53/F Req #: [id number] Adm Physician: SUSAN GLORIA MD Ordered by: KRISTINE MENDOZA MD Report #: [id number] Location: ICU Room/Bed: ICU [facility] Procedure: [id number] DX/CHEST SINGLE (PORTABLE) Exam Date: 08/01/19 Exam Time: 524 REPORT STATUS: Signed Chest, 1 view, 08/01/2019. History: Intubated. Comparison: 07/31/2019. Findings: The cardiomediastinal silhouette and pulmonary vasculature are prominent with diffuse bilateral alveolar opacities, left greater than right, with obscuration of the left hemidiaphragm. ET tube and NG tube are unchanged in position. There are no acute osseous or soft tissue abnormalities. Impression: CHF with left basilar atelectasis/pleural effusion. Signed by: Wil Perez on 08/01/2019 8:31 AM Dictated By: WIL PEREZ MD 0 Transcribed By: VANE on 08/01/19830 COPY TO: KRISTINE MENDOZA MD CHEST SINGLE (PORTABLE) 2019-07-31 08:20:00 [place] [address] Patient Name: RANDY GORMAN MR #: [id number] : 1965 Age/Sex: 53/F Req #: [id number] Adm Physician: SUSAN GLORIA MD Ordered by: KRISTINE MENDOZA MD Report #: [id number] Location: ICU Room/Bed: ICU [facility] Procedure: [id number] DX/CHEST SINGLE (PORTABLE) Exam Date: 07/31/19 Exam Time: 0510 REPORT STATUS: Signed EXAM: CHEST SINGLE (PORTABLE) DATE: 07/31/2019 7:00 AM INDICATION: Intubated COMPARISON: 07/30/2019 FINDINGS: Please note the examination is limited secondary to patient's body habitus and portable technique. Endotracheal tube tip terminating approximately 2.6 cm above the kelle. Right upper extremity PICC line identified over the SVC. Enteric tube noted coursing below the diaphragm. Lung volumes remain low. There are increased bilateral interstitial and airspace opacities as well as prominence of the central pulmonary procedure, findings are unchanged from the prior examination and may reflect edema. There is no evidence for large focal consolidation or pneumothorax. There is blunting of the left costophrenic angle and a small effusion is possible. The cardiomediastinal silhouette is stable in appearance. IMPRESSION: No significant interval change from 07/30/2019. Findings suggestive of pulmonary edema. Signed by: Dr. Steve Collins MD on 07/31/2019 8:23 AM Dictated By: STEVE COLLINS MD 2 Transcribed By: VANE on 07/31/19822 COPY TO: KRISTINE MENDOZA MD ABDOMEN-1VIEW (KUB) 2019-07-30 11:28:00 [facility] [address] [place] [address] Patient Name: RANDY GORMAN MR #: [id number] : 1965 Age/Sex: 53/F Req #: [id number] Adm Physician: SUSAN GLORIA MD Ordered by: EMILY JOLLY MD Report #: [id number] Location: ICU Room/Bed: [place] [address] Procedure: [id number] DX/ABDOMEN-1VIEW (KUB) Exam Date: 07/30/19 Exam Time: 1030 REPORT STATUS: Signed Exam: KUB - 2 views Indication: Enteric tube placement Comparison: <None.> Findings: NG tube projects below the diaphragm with tip and side-port in the stomach. Nonobstructive bowel gas pattern. No free air. Impression: NG tube with tip and side-port in the stomach. Signed by: Simone Romeo MD on 07/30/2019 11:29 AM Dictated By: SIMONE ROMEO MD 28 Tra nscribed By: VANE on 07/30/191128 COPY TO: EMILY JOLLY MD CHEST XRAY LINE PLACEMENT 2019-07-30 11:13:00 [place] [address] Patient Name: RANDY GORMAN MR #: [id number] : 1965 Age/Sex: 53/F Req #: [id number] Adm Physician: SUSAN GLORIA MD Ordered by: KRISTINE MENDOZA MD Report #: [id number] Location: ICU Room/Bed: ICU [facility] Procedure: [id number] DX/CHEST XRAY LINE PLACEMENT Exam Date: 07/30/19 Exam Time: 1030 REPORT STATUS: Signed EXAMINATION: CHEST XRAY LINE PLACEMENT INDICATION: Line placement COMPARISON: Chest are graft of 07/29/2019 FINDINGS: Initial portable chest radiograph was nondiagnostic. Repeat imaging was performed in the radiology department and images used for interpretation. LINES/TUBES:Interval placement of right PICC line terminating in the superior vena cava. Endotracheal tube terminates approximately 2 cm above the kelle. Enteric tube projects below the diaphragm with tip not well visualized. LUNGS:The lung volumes are low. There is perihilar fullness and indistinctness of the pulmonary vasculature. PLEURA:No pleural effusion or pneumothorax. MEDIASTINUM:Cardiomediastinal silhouette is stably enlarged. BONES/SOFT TISSUES:No acute osseous injury. ABDOMEN:No free air under the diaphragm. IMPRESSION: Right PICC line terminates at the superior vena cava. Other lines and tubes as above. Low lung volumes. Pulmonary edema and unchanged cardiomegaly. Signed by: Mady Romeo MD on 07/30/2019 11:16 AM Dictated By: SIMONE ROMEO MD 1116 Transcribed By: VANE on 07/30/19 1116 COPY TO: KRISTINE MENDOZA MD CHEST SINGLE (PORTABLE) 2019-07-29 07:16:00 [place] [address] Patient Name: RANDY GORMAN MR #: [id number] : 1965 Age/Sex: 53/F Req #: [id number] Adm Physician: SUSAN GLORIA MD Ordered by: KRISTINE MENDOZA MD Report #: [id number] Location: ICU Room/Bed: ICU [facility] Procedure: [id number] DX/CHEST SINGLE (PORTABLE) Exam Date: 07/29/19 Exam Time: 0535 REPORT STATUS: Signed EXAMINATION: CHEST SINGLE (PORTABLE) INDICATION: Intubation, CVP. COMPARISON: Chest radiograph 07/28/2019. FINDINGS: AP view Limited examination secondary to portable technique and soft tissue attenuation. TUBES and LINES: Endotracheal tube terminates in the right main stem bronchus, and is approximately 2 cm from the kelle. Previously noted kinked left IJ central venous catheter is no longer visualized, and likely has been removed. LUNGS: Low lung volumes. Mild interstitial opacities. Patchy right lower lung opacity. Persistent opacification of the left hemithorax with no significant mediastinal shift. PLEURA: Persistent moderate left pleural effusion. HEART AND MEDIASTINUM: The cardiomediastinal silhouette appears unchanged and enlarged. BONES AND SOFT TISSUES: No acute osseous lesion. Soft tissues are unremarkable. UPPER ABDOMEN: No free air under the diaphragm. IMPRESSION: Endotracheal tube terminates in the right main stem bronchus, and is approximately 2 cm from the kelle. Recommend retraction by at least 3-4 cm. Persistent opacities of the left lung, likely reflecting a combination of atelectasis/collapse and pleural effusion. Previously noted kinked left IJ central venous catheter is no longer visualized, and likely has been removed. Pulmonary interstitial edema. Signed by: Dr. Trena Gonzalez MD on 07/29/2019 7:25 AM Dictated By: TRENA GONZALEZ MD 4 Transcribed By: VANE on 07/29/19724 COPY TO: KRISTINE MENDOZA MD CHEST SINGLE (PORTABLE) 2019-07-28 17:43:00 [place] [address] Patient Name: RANDY GORMAN MR #: [id number] : 1965 Age/Sex: 53/F Req #: [id number] Adm Physician: SUSAN GLORIA MD Ordered by: KRISTINE MENDOZA MD Report #: [id number] Location: ICU Room/Bed: ICU [facility] Procedure: [id number] DX/CHEST SINGLE (PORTABLE) Exam Date: 07/28/19 Exam Time: 1001 REPORT STATUS: Signed EXAMINATION: CHEST SINGLE (PORTABLE) INDICATION: intubation cvp [id number] COMPARISON: None FINDINGS: AP view TUBES and LINES: Endotracheal tube has been mildly retracted, now at the level of the kelle. Recommend retraction of at least additional 2 cm. There is a left IJ central venous catheter overlying the neck which appears to be kinked and the distal aspect of the catheter extending into the supraclavicular region. LUNGS: Low lung volumes. Bilateral interstitial edema, unchanged. Left lower hemithorax is difficult to evaluate but appears to be pleural effusi on/atelectasis. PLEURA: Possible small left pleural effusion, increased since prior exam. No pneumothorax. HEART AND MEDIASTINUM: Widening of the mediastinum likely due to technique. Moderate enlargement of the cardiac silhouette is unchanged. BONES AND SOFT TISSUES: No acute osseous lesion. Soft tissues are unremarkable. UPPER ABDOMEN: No free air under the diaphragm. IMPRESSION: Mild retraction of the endotracheal tube at the T11 level of the kelle. Right common additional retraction of 2 cm. Left IJ central venous catheter of uncertain location, with the stent catheter overlying the soft tissues of the left supraclavicular region. An additional chest radiograph would be obtained in the radiology department for better characterization of the findings. Unchanged bilateral interstitial edema. Signed by: Dr. Ayala Can M.D. on 07/28/2019 5:45 PM Dictated By: AYALA CAN MD 44 Transcribed By: VANE on 07/28/191744 COPY TO: KRISTINE MENDOZA MD CHEST SINGLE (PORTABLE) 2019-07-28 09:48:00 [place] [address] Patient Name: RANDY GORMAN MR #: [id number] : 1965 Age/Sex: 53/F Req #: [id number] Adm Physician: SUSAN GLORIA MD Ordered by: WIL WALKER DO Report #: [id number] Location: ICU Room/Bed: ICU [facility] Procedure: [id number] DX/CHEST SINGLE (PORTABLE) Exam Date: 07/28/19 Exam Time: 919 REPORT STATUS: Signed EXAMINATION: CHEST SINGLE (PORTABLE) INDICATION: [id number] INTUBATION AND CENTRAL LINE COMPARISON: None FINDINGS: AP view TUBES and LINES: Suboptimal exam due to underpenetration. There is interval intubation. Endotracheal tube appears to overlie in the right mainstem bronchus. No central line visualized. LUNGS: Low lung volumes. Persistent bilateral interstitial edema. PLEURA: No pleural effusion or pneumothorax. HEART AND MEDIASTINUM: Moderate enlargement of the cardiac silhouette. BONES AND SOFT TISSUES: No acute osseous lesion. Soft tissues are unremarkable. UPPER ABDOMEN: No free air under the diaphragm. IMPRESSION: Suboptimal exam due to underpenetration. Endotracheal tube appears to be in the right mainstem bronchus. Recommend retrieve it by 4 cm. No central line visualized. These findings were communicated to Dr Mendoza on 07/28/2019 at 9:55AM. Signed by: Dr. Ayala Can M.D. on 07/28/2019 9:57 AM Dictated By: AYALA CAN MD 6 Transcribed By: VANE on 07/28/19956 COPY TO: WIL WALKER DO CHEST SINGLE (PORTABLE) 2019-07-28 07:32:00 [place] [address] Patient Name: RANDY GORMAN MR #: [id number] : 1965 Age/Sex: 53/F Req #: [id number] Adm Physician: SUSAN GLORIA MD Ordered by: KRISTINE MENDOZA MD Report #: [id number] Location: ICU Room/Bed: ICU [facility] Procedure: [id number] DX/CHEST SINGLE (PORTABLE) Exam Date: 07/28/19 Exam Time: 604 REPORT STATUS: Signed EXAMINATION: CHEST SINGLE (PORTABLE) INDICATION: sob [id number] COMPARISON: 07/25/2019 FINDINGS: AP view TUBES and LINES: None. LUNGS: Worsening decreased lung volumes when compared to prior exam. Bilateral interstitial edema, increased. Left lower hemithorax is difficult to evaluate but appears to be worsening pleural effusion/atelectasis. PLEURA: Possible small left pleural effusion, increased since prior exam. No pneumothorax. HEART AND MEDIASTINUM: Widening of the mediastinum likely due to technique. Moderate enlargement of the cardiac silhouette is unch anged. BONES AND SOFT TISSUES: No acute osseous lesion. Soft tissues are unremarkable. UPPER ABDOMEN: No free air under the diaphragm. IMPRESSION: Worsening bilateral interstitial edema. Opacification of the left lower hemithorax may be overestimated by technique but suspected new left pleural effusion. Consider repeat chest x-ray with better inspiration. Signed by: Dr. Ayala Can M.D. on 07/28/2019 7:34 AM Dictated By: AYALA CAN MD 3 Transcribed By: VANE on 07/28/19733 COPY TO: KRISTINE MENDOZA MD CT ABDOMEN/PELVIS WO 2019-07-25 16:48:00 [place] [address] Patient Name: RANDY GORMAN MR #: [id number] : 1965 Age/Sex: 53/F Req #: [id number] Adm Physician: Ordered by: WIL SEBASTIAN COMPETITIVE INTELLIGENCE MANAGER Report #: [id number] Location: ER Room/Bed: Procedure: [id number] CT/CT ABDOMEN/PELVIS WO Exam Date: 07/25/19 Exam Time: 1610 REPORT STATUS: Signed CT of the abdomen and pelvis, without contrast. History: Abdominal pain. Comparison: None available. Technique: Multidetector CT scanning of the abdomen and pelvis was performed from the level of the lung bases to the inferior pubic rami without the use of contrast material. Coronal and sagittal multiplanar reformations were obtained. RADIATION DOSE: Total DLP: 1379.54 mGy*cm Dose modulation, iterative reconstruction, and/or weight based adjustment of the mA/kV was utilized to reduce the radiation dose to as low as reasonably achievable. FINDINGS: Please note the examination is limited by the patient's body habitus with portion of the left lower abdominal cavity abutting the gantry wall and is excluded from the examination. The visualized lungs are unremarkable. The imaged portion of the heart demonstrates no significant abnormality. The liver is mildly enlarged measuring 19 cm in length but otherwise but otherwise demonstrates an unremarkable noncontrast appearance. The gallbladder surgically absent. There are postsurgical changes from prior gastric bypass. The spleen is enlarged measuring 16.7 cm in length. The pancreas and bilateral adrenal glands demonstrate an unremarkable noncontrast appearance. The kidneys are normal in size and location. There is no evidence for nephrolithiasis or hydronephrosis. The partially distended urinary bladder demonstrates no significant abnormalities. The uterus and adnexa are grossly unremarkable. The abdominal aorta is normal in course and caliber. The IVC is normal in caliber. Please note evaluation the bowel is limited without the use of enteric contrast material. The visualized loops of small and large bowel demonstrate no evidence of obstruction or inflammation. There is no ascites or intraperitoneal free air. There are mildly enlarged right inguinal lymph nodes measuring up to 3.0 x 3.4 cm. There are degenerative changes of the thoracolumbar spine. The osseous structures demonstrate no evidence for acute fracture or destructive process. There are postsurgical changes and suspected suture material within the anterior peritoneal wall. Subcutaneous edema stranding present within the anterior abdominal wall. No organized fluid collection is identified. IMPRESSION: Limited examination secondary to patient's body habitus demonstrates no acute abdominopelvic process. Mild hepatomegaly and splenomegaly. Status post cholecystectomy and suspected gastric bypass. Nonspecific mildly enlarged right inguinal lymph nodes. Subcutaneous edema noted within the anterior abdominal wall without evidence for organized fluid collection. Signed by: Dr. Steve Collins MD on 07/25/2019 4:58 PM Dictated By: STEVE COLLINS MD 57 Transcribed By: VANE on 07/25/191657 COPY TO: WIL SEBASTIAN NP CHEST SINGLE (NOT PORTABLE) 2019-07-25 16:40:[address] [address] Patient Name: RANDY GORMAN MR #: [id number] : 1965 Age/Sex: 53/F Req #: [id number] Adm Physician: Ordered by: WIL SEBASTIAN NP Report #: [id number] Location: ER Room/Bed: Procedure: [id number] DX/CHEST SINGLE (NOT PORTABLE) Exam Date: 07/25/19 Exam Time: 1610 REPORT STATUS: Signed EXAM: CHEST SINGLE (NOT PORTABLE) DATE: 07/25/2019 3:36 PM INDICATION: Abdominal pain COMPARISON: None IMPRESSION: The trachea is midline. There is mild prominence of the pulmonary vasculature which is nonspecific but can be seen in the setting of edema. The lungs are otherwise symmetrically expanded without evidence for large focal consolidation, pneumothorax, or significant pleural effusion. The cardiac silhouette appears prominent which may be secondary to technique. No acute osseous abdomen is identified. Signed by: Dr. Steve Collins MD on 07/25/2019 4:42 PM Dictated By: STEVE COLLINS MD 41 Transcribed By: VANE on 07/25/191641 COPY TO: WIL SEBASTIAN COMPETITIVE INTELLIGENCE MANAGER MAMMOGRAPHY DIGITAL SCR BILAT 2019-05-07 12:44:[address] [address] Patient Name: RANDY GORMAN MR #: [id number] : 1965 Age/Sex: 53/F Req #: [id number] Adm Physician: Ordered by: SUSAN GLORIA MD Report #: [id number] Location: MAMMO Room/Bed: Procedure: [id number] MG/MAMMOGRAPHY DIGITAL SCR BILAT Exam Date: 05/07/19 Exam Time: 1000 REPORT STATUS: Signed THIS REPORT HAS BEEN AMENDED. #[id number] - [id number] #BILATERAL DIGITAL SCREENING MAMMOGRAM WITH CAD: 05/07/2019 CLINICAL: Routine screening. No prior exams were available for comparison. There are scattered fibroglandular elements in both breasts. Current study was also evaluated with a Computer Aided Detection (CAD) system. There are linear calcifications in the left breast central to the nipple posterior depth. No other significant masses, calcifications, or other findings are seen in either breast. IMPRESSION: INCOMPLETE: NEEDS ADDITIONAL IMAGING EVALUATION The linear calcifications in the left breast are indeterminate. Magnification views as well as a possible ultrasound are recommended. The patient will be contacted by the Mammography Department to schedule this appointment. SIMONE kelley/kimberly:05/10/2019 08:41:27 Hair Dresser: Dasah CAREY)([place]), [facility] letter sent: Additional Imaging Needed Mammogram BI-RADS: 0 Indeterminate AMENDMENT: 05/21/2019 SIMONE ROMEO M.D. Prior imaging was obtained following the initial interpretation. The calcifications in question in the left breast are unchanged compared to diagnostic mammogram from 11/26/2013 and are thus almost certainly benign (BIRADS 2) Amended BI-RADS: 2 Benign letter sent: Compared to Prior B9 Dictated By: SIMONE ROMEO MD 0841 Transcribed By: KIMBERLY on 05/21/19 1248 COPY TO: SUSAN GLORIA MD
--- NOTE | 2019-08-03 12:14 | Progress Note ---
DATE: 08/03/2019 SUBJECTIVE: Extubated. Sodium is somewhat high. Chest x-ray still showing fluid overload. Intake 1.7, output 1.9, not really net negative. PHYSICAL EXAMINATION: GENERAL: Lying in ICU bed. VITAL SIGNS: Temperature 97.7, heart rate 49, and blood pressure 166/95. CHEST: Scattered rhonchi. EXTREMITIES: Sacral edema. SKIN: Appears wrinkled. NEURO: Opens eyes. CARDIAC: Normal heart tones with bradycardia is present. LABORATORY DATA: White count 9.2, hemoglobin 11.5, and platelets are 126,000. Sodium 148, serum CO2 of 31, creatinine 1.99, BUN 85. ASSESSMENT: 1. Acute tubular necrosis/cardiorenal syndrome. 2. Fluid overload, improving. 3. Hyponatremia from the loop diuretic. 4. Concern for CO2 retention. If possible, please check another blood gas. PLAN: IV Lasix, one dose of Diamox. If sodium continues to rise, we will add more free water to the tube feeds. No emergent need for dialysis. MD RAFI Hernandez/MODL /[id number]
--- NOTE | 2019-08-03 12:28 | Progress Note ---
DATE: 08/03/2019 Cardiology Progress Note SUBJECTIVE: Remains intubated, on vent support, and sedated. OBJECTIVE: VITAL SIGNS: Temperature 97.7, heart rate 49, sinus bradycardia on Tele. Respiratory rate 14, on vent support. GENERAL: In no acute distress. Intubated, sedated. CHEST: Decreased breath sounds. CARDIOVASCULAR: Regular rate and rhythm. Distant heart sounds. ABDOMEN: Soft. Bowel sounds positive. EXTREMITIES: Trace edema. CARDIOVASCULAR MEDICATIONS: Reviewed. Methylprednisolone, p.r.n. hydralazine, furosemide 80 mg IV daily, resumed. LABORATORY DATA: White blood cells 9.2, hemoglobin 11.5, and platelets 126. Sodium 148, potassium 4.1, chloride 102, bicarbonate 31, BUN 85, creatinine 1.99, trending down. Glucose 134, AST 116, ALT 83. ASSESSMENT AND PLAN: 1. Acute renal failure. 2. Volume overload, status post diuresis. 3. Rbwxa-jk-pvddkse diastolic heart failure. 4. Respiratory failure in the setting of an extreme morbid obesity and hypercapnic respiratory failure. 5. Obstructive sleep apnea. 6. History of alcohol abuse. 7. Hypertension. RECOMMEND: 1. Continue wean vent support as tolerated. 2. Slow diuresis. 3. Monitor renal function and electrolytes. 4. P.r.n. antihypertensives. Praveen Troncoso MD AFRosa/MODL /[id number]
[2019-08-03 14:15] LABS: ABG PH 7.28 (7.31-7.41)
[2019-08-03 14:16] LABS: ABG HCO3 37 mmol/L (23-28); ABG PCO2 80 mmHg (41-51); ABG PO2 98 mmHg (80-105)
[2019-08-03] MEDS ORDERED: DEXMEDETOMIDINE HCL 200 MCG in SODIUM CHLORIDE 0.9% 50ML 48 ML IV PRN (17:30)
[2019-08-03] MEDS: FENTANYL CITRATE INJ 2,000 MCG in SODIUM CHLORIDE 0.9% 250ML 210 ML IV PRN (19:51)
[2019-08-03] MEDS: MONTELUKAST SODIUM 10 MG TAB PO SCH (20:49)
[2019-08-03] MEDS: ESCITALOPRAM OXALATE 10 MG TAB PO SCH (20:49)
[2019-08-03] MEDS: IRON SUCROSE 100 MG in SODIUM CHLORIDE 0.9% 100 ML 100 ML IV SCH (20:50)
[2019-08-03] MEDS: MIDAZOLAM HCL 25 MG in SODIUM CHLORIDE 0.9% 50ML 45 ML IV PRN (22:45)
--- NOTE | 2019-08-03 22:45 | NUR ---
New Precedex bag hung
[2019-08-04] VITALS (25 sets, daily range): BP systolic 13–182; BP diastolic 64–100
[2019-08-04] MEDS: METHYLPREDNISOLONE SOD SUCC 40 MG/ML VIAL 1ML IV SCH ×3 (01:17→18:41)
[2019-08-04] MEDS: FENTANYL CITRATE INJ 2,000 MCG in SODIUM CHLORIDE 0.9% 250ML 210 ML IV PRN ×4 (01:17→22:55)
--- NOTE | 2019-08-04 02:07 | NUR ---
New Precedex Bag Hung
[2019-08-04] MEDS: MIDAZOLAM HCL 25 MG in SODIUM CHLORIDE 0.9% 50ML 45 ML IV PRN ×6 (02:08→23:24)
[2019-08-04] MEDS: ALBUTEROL/IPRATROPIUM 3 ML NEB NEB SCH ×6 (03:07→22:45)
[2019-08-04] MEDS: LEVOTHYROXINE SODIUM 75 MCG TAB PO SCH (05:25)
[2019-08-04 05:33] LABS: EOSINOPHILS % 0.1 % (0.0-6.0); HEMOGLOBIN 10.6 g/dL (12.0-16.0); LYMPHOCYTES # (AUTO) 0.5 (1.0-3.2); LYMPHOCYTES % 5.5 % (18.0-39.1); MEAN CORPUSCULAR HEMOGLOBIN 21.4 pg (28-32); MEAN CORPUSCULAR HGB CONC 26.5 g/dL (31-35); MEAN CORPUSCULAR VOLUME 80.6 fL (81-99); MONOCYTES # (AUTO) 0.4 (0.2-0.8); MONOCYTES % 5.1 % (4.4-11.3); NEUTROPHILS # (AUTO) 7.5 (2.1-6.9); NEUTROPHILS % 88.7 % (38.7-80.0); PLATELET COUNT 127 x10e3/uL (140-360); RED BLOOD COUNT 4.96 x10e6/uL (3.6-5.1); RED CELL DISTRIBUTION WIDTH 23.4 % (11.7-14.4)
[2019-08-04 05:50] LABS: ALBUMIN 2.8 g/dL (3.5-5.0); ALBUMIN/GLOBULIN RATIO 0.8 (0.8-2.0); ANION GAP 14.5 mmol/L (8-16); CALCIUM 8.7 mg/dL (8.4-10.2); CREATININE, SERUM 1.7 mg/dL (0.57-1.11); POTASSIUM 3.5 mmol/L (3.5-5.1)
[2019-08-04] MEDS ORDERED: MAGNESIUM HYDROXIDE 30 ML UDC PO ONE (06:00)
--- NOTE | 2019-08-04 06:43 | NUR ---
New bag Prededex hung
[2019-08-04 07:17] LABS: ANISOCYTOSIS SLIGHT; HYPOCHROMASIA SLIGHT; LYMPHOCYTES % (MANUAL) 7 % (19-48); MICROCYTOSIS SLIGHT; MONOCYTES % (MANUAL) 6 % (3.4-9.0); NEUTROPHILS % (MANUAL) 87 % (40-74); PLATELET ESTIMATE ADEQUATE; PLATELET MORPHOLOGY COMMENT NORMAL; RBC MORPHOLOGY COMMENT ABNORMAL
[2019-08-04] MEDS: BUDESONIDE 0.5MG/2 ML NEB INH SCH ×2 (07:25→18:47)
[2019-08-04] MEDS: FUROSEMIDE INJ 10 MG/ML 4 ML VIAL IV SCH ×2 (07:52→21:06)
[2019-08-04] MEDS: THIAMINE HCL 100 MG TAB NG SCH (07:53)
[2019-08-04] MEDS: FAMOTIDINE 20 MG/2 ML VIAL IV SCH ×2 (07:53→18:41)
[2019-08-04] MEDS: CHLORTHALIDONE 25 MG TAB PO SCH (07:53)
--- NOTE | 2019-08-04 08:25 | NUR ---
NG TUBE WAS NOTED TO BE MARKEDLY RETRACTED. ABLE TO HEAR AIR IN THE LOWER PORTION OF THE ESOPHAGUS. NG WAS ADVANCED AND PLACEMENT WAS VERIFIED BY HEARING AIR IN THE STOMACH.
--- NOTE | 2019-08-04 09:42 | Diagnostic Imaging Report ---
EXAMINATION: CHEST SINGLE (PORTABLE) INDICATION: Intubation COMPARISON: Chest radiograph of 08/01/2019 FINDINGS: Exam is limited by portable technique and soft tissue attenuation. LINES/TUBES:Endotracheal tube terminates 3.1 cm above the kelle. Enteric tube courses below the left hemidiaphragm. LUNGS:Lung volumes are low. Slightly decreased bilateral interstitial opacities. PLEURA:Likely small left pleural effusion. No pneumothorax. MEDIASTINUM:Cardiomediastinal silhouette is enlarged, slightly decreased from the prior study. BONES/SOFT TISSUES:No acute osseous abnormality. ABDOMEN:No free air under the diaphragm. IMPRESSION: Limited examination. Low lung volumes with slightly decreased pulmonary edema and cardiomegaly. Lines and tubes as above. No evidence of pneumothorax. Signed by: Dr. Adam Constantino MD on 08/04/2019 9:38 AM
[2019-08-04] MEDS ORDERED: DEXMEDETOMIDINE 200MCG/NS 50ML 50 ML IV ONE ×2 (10:33→15:11)
--- NOTE | 2019-08-04 10:34 | Progress Note ---
DATE: 08/04/2019 SUBJECTIVE: Remains intubated, awakening off sedation, pCO2 was high yesterday. RT is suctioning pinkish fluid from the endotracheal tube. PHYSICAL EXAMINATION: GENERAL: Large habitus. VITAL SIGNS: Temperature 98, pulse 53, blood pressure 143/87. I's and O's, 2.2 in, 2.6 out. CHEST: Diminished breath sounds. EXTREMITIES: Trace edema. ABDOMEN: Benign. NEURO: Occasionally awaken. ASSESSMENT: 1. Fluid overload, acute kidney injury, likely acute tubular necrosis. 2. Respiratory acidosis, back on ventilator. 3. Hyponatremia from the loop diuretic. 4. Minimal alkalosis. PLAN: Add chlorthalidone. Increase free water flushes 200 mL t.i.d. Increase Lasix to 80 mg b.i.d. Serial chemistries. No emergent need for dialysis. Thank you for allowing us to participate in Ms. Garcia's care. MD RAFI Hernandez/KASSYL /[id number]
[2019-08-04] MEDS: DEXMEDETOMIDINE HCL 200 MCG in SODIUM CHLORIDE 0.9% 50ML 48 ML IV PRN ×4 (12:00→22:46)
[2019-08-04 12:47] LABS: ABG PH 7.52 (7.31-7.41)
[2019-08-04 12:48] LABS: ABG HCO3 33 mmol/L (23-28); ABG PCO2 41 mmHg (41-51); ABG PO2 67 mmHg (80-105)
--- NOTE | 2019-08-04 20:37 | Progress Note ---
DATE: 08/04/2019 Cardiology Progress Note SUBJECTIVE: No complaints. Remains intubated, on light sedation. Able to open eye to . OBJECTIVE: VITAL SIGNS: Temperature 98 degrees, heart rate 53, blood pressure 143/87, respiratory rate 16, and O2 saturation 98%. GENERAL: Intubated and mildly sedated, RASS -1. BMI 73.6. CHEST: With decreased breath sounds bilaterally and scattered rhonchi. CARDIOVASCULAR: Regular rate and rhythm. Normal S1 and S2. Distant heart sounds. ABDOMEN: Morbidly obese. EXTREMITIES: With trace edema. CARDIOVASCULAR MEDICATIONS: Reviewed. Methylprednisolone, furosemide 80 every 12, chlorthalidone 25 mg daily, and hydralazine p.r.n. 10 mg q.6. LABORATORY DATA: Sodium 148, potassium 3.5, chloride 107, bicarbonate 30, BUN 80, creatinine 1.7, and glucose 115. White blood cells 8.4, hemoglobin 10.6, and platelets 127. PT 15.2, PTT 29, and INR 1.1. AST 175, ALT 145, total bilirubin is 0.5, and alkaline phosphatase 76. ASSESSMENT AND PLAN: 1. A 53-year-old woman with obesity-hypoventilation syndrome, obstructive sleep apnea, xsokh-ia-fcymnli hypercapnic respiratory failure, qiqyv-sm-pxobniu diastolic heart failure, acute renal failure with now recovering renal function, anemia and thrombocytopenia, and history of alcohol abuse, presents with prolonged intubation requiring ventilatory support. Recommend continue weaning. 2. Continue diuretics as tolerated. 3. May consider tracheostomy depending on continued clinical course. 4. Monitor renal function and correct electrolytes as needed. 5. We will follow up with you. Please call with any questions. Praveen Troncoso MD AFV/MODL /[id number]
[2019-08-04] MEDS: MONTELUKAST SODIUM 10 MG TAB PO SCH (21:06)
[2019-08-04] MEDS: ESCITALOPRAM OXALATE 10 MG TAB PO SCH (21:06)
[2019-08-04] MEDS: IRON SUCROSE 100 MG in SODIUM CHLORIDE 0.9% 100 ML 100 ML IV SCH (21:06)
[2019-08-05] VITALS (23 sets, daily range): BP systolic 117–199; BP diastolic 64–123
[2019-08-05] MEDS: METHYLPREDNISOLONE SOD SUCC 40 MG/ML VIAL 1ML IV SCH ×3 (01:50→17:12)
[2019-08-05] MEDS: DEXMEDETOMIDINE HCL 200 MCG in SODIUM CHLORIDE 0.9% 50ML 48 ML IV PRN ×2 (02:06→07:30)
[2019-08-05] MEDS: MIDAZOLAM HCL 25 MG in SODIUM CHLORIDE 0.9% 50ML 45 ML IV PRN ×2 (02:06→05:56)
[2019-08-05] MEDS: ALBUTEROL/IPRATROPIUM 3 ML NEB NEB SCH ×6 (02:47→22:55)
[2019-08-05] MEDS: FENTANYL CITRATE INJ 2,000 MCG in SODIUM CHLORIDE 0.9% 250ML 210 ML IV PRN (03:41)
[2019-08-05 05:19] LABS: BASOPHILS % 0.1 % (0.0-1.0); EOSINOPHILS % 0.2 % (0.0-6.0); HEMATOCRIT 36.8 % (34.2-44.1); HEMOGLOBIN 9.8 g/dL (12.0-16.0); LYMPHOCYTES # (AUTO) 0.6 (1.0-3.2); LYMPHOCYTES % 5.7 % (18.0-39.1); MEAN CORPUSCULAR HEMOGLOBIN 21.8 pg (28-32); MEAN CORPUSCULAR HGB CONC 26.6 g/dL (31-35); MEAN CORPUSCULAR VOLUME 81.8 fL (81-99); MONOCYTES # (AUTO) 0.7 (0.2-0.8); MONOCYTES % 7.2 % (4.4-11.3); NEUTROPHILS # (AUTO) 8.4 (2.1-6.9); NEUTROPHILS % 86.1 % (38.7-80.0); PLATELET COUNT 118 x10e3/uL (140-360); RED CELL DISTRIBUTION WIDTH 23.7 % (11.7-14.4)
[2019-08-05 05:37] LABS: ANION GAP 16.2 mmol/L (8-16); CALCIUM 8.2 mg/dL (8.4-10.2); CREATININE, SERUM 1.7 mg/dL (0.57-1.11); POTASSIUM 3.2 mmol/L (3.5-5.1)
[2019-08-05] MEDS: LEVOTHYROXINE SODIUM 75 MCG TAB PO SCH (05:56)
[2019-08-05] MEDS ORDERED: MAGNESIUM HYDROXIDE 30 ML UDC PO ONE (06:00)
[2019-08-05] MEDS: BUDESONIDE 0.5MG/2 ML NEB INH SCH ×2 (06:15→19:04)
[2019-08-05 06:28] LABS: ALBUMIN 2.8 g/dL (3.5-5.0); ANION GAP 16.3 mmol/L (8-16); CALCIUM 8.4 mg/dL (8.4-10.2); CREATININE, SERUM 1.81 mg/dL (0.57-1.11); POTASSIUM 3.3 mmol/L (3.5-5.1)
[2019-08-05] MEDS ORDERED: DEXMEDETOMIDINE 200MCG/NS 50ML 50 ML IV ONE (07:08)
[2019-08-05 08:27] LABS: PHOSPHORUS 3.9 MG/DL (2.3-4.7)
[2019-08-05] MEDS: CHLORTHALIDONE 25 MG TAB PO SCH (08:43)
[2019-08-05] MEDS: THIAMINE HCL 100 MG TAB NG SCH (08:43)
[2019-08-05] MEDS: FAMOTIDINE 20 MG/2 ML VIAL IV SCH ×2 (08:43→17:12)
[2019-08-05] MEDS: FUROSEMIDE INJ 10 MG/ML 4 ML VIAL IV SCH ×2 (08:43→20:56)
[2019-08-05] MEDS ORDERED: DEXAMETHASONE SOD PHOS INJ 4 MG/ML VIAL ONE (11:31)
[2019-08-05 12:00] LABS: ABG HCO3 38 mmol/L (23-28); ABG PCO2 68 mmHg (41-51); ABG PH 7.35 (7.31-7.41); ABG PO2 117 mmHg (80-105)
--- NOTE | 2019-08-05 12:00 | NUR ---
DR FARRIS ORDER EXTUBATED ,PLCAED PT ON BIPAP 28/03//50%.
[2019-08-05 12:06] LABS: ABG PH 7.35 (7.31-7.41)
[2019-08-05 12:07] LABS: ABG HCO3 38 mmol/L (23-28); ABG PCO2 68 mmHg (41-51); ABG PO2 117 mmHg (80-105)
[2019-08-05 12:10] LABS: LYMPHOCYTES % (MANUAL) 6 % (19-48); MONOCYTES % (MANUAL) 5 % (3.4-9.0); NEUTROPHILS % (MANUAL) 89 % (40-74)
[2019-08-05 12:11] LABS: ANISOCYTOSIS SLIGHT; HYPOCHROMASIA MODERATE; PLATELET ESTIMATE SLIGHTLY DECREASED; PLATELET MORPHOLOGY COMMENT NORMAL; RBC MORPHOLOGY COMMENT ABNORMAL
[2019-08-05] MEDS ORDERED: DEXAMETHASONE SOD PHOS INJ 4 MG/ML VIAL IV ONE (12:30)
[2019-08-05 13:41] LABS: ABG HCO3 38 mmol/L (23-28); ABG PCO2 60 mmHg (41-51); ABG PO2 155 mmHg (80-105)
--- NOTE | 2019-08-05 15:47 | Progress Note ---
DATE: 08/05/2019 Cardiology Progress Note SUBJECTIVE: Extubated today, on BiPAP. No complaints. On telemetry, sinus tachycardia 110 to 120. OBJECTIVE: VITAL SIGNS: Temperature 98 degrees, blood pressure 164/89, respiratory rate 18, and O2 saturation 99% on BiPAP. BMI 72.5. GENERAL: In no acute distress. HEENT: BiPAP in place. CHEST: Decreased breath sounds to bilateral bases. CARDIOVASCULAR: Regular rate and rhythm, normal S1, S2. Systolic ejection murmur. ABDOMEN: Soft. Bowel sounds positive. EXTREMITIES: Trace edema. CARDIOVASCULAR MEDICATIONS: Reviewed. Chlorthalidone 25 mg daily, furosemide 80 mg IV b.i.d., methylprednisolone 20 mg every 8 hours. STUDIES: Sodium 150, potassium 3.3, chloride 111, bicarbonate 26, BUN 79, creatinine 1.8, glucose 137. White blood cells 9.8, hemoglobin 9.8, platelets are 118. INR 1.1, PT 17.2, PTT 29. AST 173, ALT 168. ASSESSMENT AND PLAN: 1. A 53-year-old woman with xavop-ey-dctjjvb respiratory failure, hypercapnic, volume overload, now improved. 2. Nytrg-ys-vpywtkt diastolic heart failure. 3. Acute renal failure. 4. Morbid obesity with BMI of 72.5. 5. Obesity hypoventilation syndrome and obstructive sleep apnea. 6. Anemia. 7. Abnormal LFTs. 8. History of alcohol abuse. RECOMMEND: 1. Monitor ventilatory status. 2. Continue diuretic therapy and monitor renal function. 3. Antihypertensives p.r.n. MD FERMÍN Tarango/MODAlexis /[id number]
--- NOTE | 2019-08-05 16:06 | Progress Note ---
DATE: 08/05/2019 SUBJECTIVE: Extubated using BiPAP, making good amounts of urine. Output was 3.8 L, intake including free water flushes 2.6 L, negative 1.1. PHYSICAL EXAMINATION: GENERAL: Lying in bed, in no distress, using BiPAP. VITAL SIGNS: Temperature 98, pulse 74, and blood pressure 164/89. CHEST: Occasional rhonchi. EXTREMITIES: Trace edema. ABDOMEN: Benign. Minimal cellulitis appears to be resolving. NEUROLOGIC: Alert, appropriate. Speech is normal. LABORATORY DATA: Last pCO2 was 68. Sodium 150, K 3.3, serum CO2 of 26, creatinine 1.8, BUN 79. ASSESSMENT: 1. Acute tubular necrosis/cardiorenal syndrome. Appears to be improving. 2. Minimal hypokalemia from the diuretics. PLAN: 1. Continue diuretics. 2. Serial chemistries. 3. No emergent dialysis. 4. Continue free water flushes. 5. Expect blood pressure get better as more the fluid comes off. MD FLASH HernandezK/MODL /[id number]
[2019-08-05] MEDS: IRON SUCROSE 100 MG in SODIUM CHLORIDE 0.9% 100 ML 100 ML IV SCH (20:56)
[2019-08-05] MEDS: MONTELUKAST SODIUM 10 MG TAB PO SCH (20:57)
[2019-08-05] MEDS: ESCITALOPRAM OXALATE 10 MG TAB PO SCH (20:57)
[2019-08-06] VITALS (29 sets, daily range): BP systolic 109–173; BP diastolic 58–95
[2019-08-06] MEDS: ALBUTEROL/IPRATROPIUM 3 ML NEB NEB SCH ×6 (02:35→23:07)
[2019-08-06] MEDS: METHYLPREDNISOLONE SOD SUCC 40 MG/ML VIAL 1ML IV SCH (03:05)
[2019-08-06] MEDS: LEVOTHYROXINE SODIUM 75 MCG TAB PO SCH (04:54)
[2019-08-06 05:08] LABS: BASOPHILS % 0.2 % (0.0-1.0); HEMATOCRIT 43.1 % (34.2-44.1); HEMOGLOBIN 11.3 g/dL (12.0-16.0); LYMPHOCYTES # (AUTO) 0.5 (1.0-3.2); LYMPHOCYTES % 4.7 % (18.0-39.1); MEAN CORPUSCULAR HEMOGLOBIN 21.9 pg (28-32); MEAN CORPUSCULAR HGB CONC 26.2 g/dL (31-35); MEAN CORPUSCULAR VOLUME 83.7 fL (81-99); MONOCYTES # (AUTO) 0.3 (0.2-0.8); MONOCYTES % 2.8 % (4.4-11.3); NEUTROPHILS # (AUTO) 10.2 (2.1-6.9); NEUTROPHILS % 91.6 % (38.7-80.0); PLATELET COUNT 170 x10e3/uL (140-360); RED BLOOD COUNT 5.15 x10e6/uL (3.6-5.1); RED CELL DISTRIBUTION WIDTH 23.9 % (11.7-14.4)
[2019-08-06 05:34] LABS: ANION GAP 17.9 mmol/L (8-16); CALCIUM 10.4 mg/dL (8.4-10.2); CREATININE, SERUM 1.74 mg/dL (0.57-1.11); POTASSIUM 3.9 mmol/L (3.5-5.1)
--- NOTE | 2019-08-06 06:19 | Diagnostic Imaging Report ---
EXAMINATION: CHEST SINGLE (PORTABLE) INDICATION: ^sob COMPARISON: 08/04/2019 FINDINGS: AP view TUBES and LINES: None. LUNGS: Limited by body habitus. Central vascular congestion and mild interstitial edema. PLEURA: No significant pleural effusion or pneumothorax. HEART AND MEDIASTINUM: The cardiomediastinal silhouette is enlarged. BONES AND SOFT TISSUES: No acute osseous lesion. Soft tissues are unremarkable. UPPER ABDOMEN: No free air under the diaphragm. IMPRESSION: Limited by body habitus. Enlarged cardiomediastinal silhouette, central vascular congestion, and mild interstitial edema. Interval extubation and removal of NG tube. Signed by: Dr. Perry Loredo MD on 08/06/2019 6:16 AM
[2019-08-06] MEDS: FUROSEMIDE INJ 10 MG/ML 4 ML VIAL IV SCH (08:01)
[2019-08-06] MEDS: FAMOTIDINE 20 MG/2 ML VIAL IV SCH ×2 (08:01→17:12)
[2019-08-06] MEDS: BUDESONIDE 0.5MG/2 ML NEB INH SCH ×2 (08:10→19:40)
[2019-08-06] MEDS ORDERED: DEXTROSE 5% 1,000 ML IV ONE (08:30)
[2019-08-06] MEDS: THIAMINE HCL 100 MG TAB NG SCH (08:47)
--- NOTE | 2019-08-06 08:54 | NUR ---
PT EXTUBATED 08/05 DISCUSSED PLAN OF CARE WITH DR Wayne GLORIA ORDERS FOR P.T. EVAL AND SNF EVAL (HE PREFERS EITHER [facility] OR [facility] IF PT AGREEABLE) PT ON NASAL CANNULA DR Wayne GLORIA WILL DECIDE THIS WEEK WHEN PT IS STABLE FOR TRANSFER
[2019-08-06] MEDS: CHLORTHALIDONE 25 MG TAB PO SCH (09:00)
[2019-08-06 09:11] LABS: ANION GAP 16.6 mmol/L (8-16); CALCIUM 10.8 mg/dL (8.4-10.2); CREATININE, SERUM 1.78 mg/dL (0.57-1.11); POTASSIUM 3.6 mmol/L (3.5-5.1)
[2019-08-06] MEDS: DEXTROSE 5% 1,000 ML IV SCH ×2 (09:36→19:15)
[2019-08-06] MEDS ORDERED: HYDRALAZINE HCL 20 MG/ML VIAL IV PRN (09:45)
--- NOTE | 2019-08-06 12:26 | NUR ---
Follow up Note RD Recommendation(s) for Physician: -ADAT to regular (small meals throughout the day, low sugar foods) per MD, texture per speech. Plan of Care: RD following, monitoring for tolerance and adequacy. Nutrition reason for involvement: follow up RD Assessment 08/06: Follow up: Pt remains in the ICU, has been extubated, on NC. Spoke about pt in rounds, per nurse the MD does not want the pt to have a speech eval yet d/t her high risk of aspiration, pt is no longer on TFs. Pt was started on D5W today. Pts Na-remains high, was started on D5. Will continue to monitor. (08/02/19) Follow up. Pt remains intubated and Jevity 1.2 tube feeding diet order was placed on 07/31. Pt is tolerating tube feeding per RN. Discussed recommendation of modifying tube feeding to Vital High Protein with RN. Will continue to monitor. (07/30/19) Pt is a 53 year old female admitted with abdominal wall cellulitis. Pt was experiencing respiratory distress; therefore, pt was intubated. There were no family members present at bedside; therefore, nutrition history is limited. Recommend enteral nutrition if pt is to remain intubated. Discussed recommendations with RN. Will continue to monitor. Principal Problems/Diagnoses: abdominal wall cellulitis PMH: hypothyroid, obstructive sleep apnea, anxiety, morbid obesity, gastric bypass surgery I/O: 1200/1500 IVF: D5W at 100 ml/hr (120 gram dex, 408 kcal) GI: soft, non-tender, large, abdomen, LBM: 08/06 Skin: no pressure ulcers documented Labs: 08/06: Na 153, CO2 37, BUN 80, Creat 1.78, Gluc 114, Ca 10.8 (08/02/19) BUN 74, Creat 2.14, Glu 150, BNP 301 (07/30/19) BUN 36, Creat 1.94, Glu 146, Mg 2.2 Meds: thiamine, pepcid protonix, levothyroxine, iron sucrose, zofran, hydralazine Ht: 61 inches Wt: 392 lbs 386 lbs (07/30/19) 385 (08/06) BMI: 74.1 kg/m2 IBW: 105 lbs Malnutrition Evaluation (07/30/19) The patient does not meet criteria for a specified degree of malnutrition at this time. Will re-evaluate at follow-up as appropriate. Unable to assess. Nutrition Prescription (Diet Order): Jevity 1.2 @ 30 mL/hr Estimated Nutritional Needs: 7490-4768 calories/day (22-25 kcal/kg IBW) 72-119 g protein/day (1.5-2.5 g pro/kg IBW) Diet Adequacy: Not meeting calorie needs, Not meeting protein needs with current tube feed order Tolerance: Tolerating tube feeding Diet Education Needs Assessment: Diet education not indicated at this time Nutrition Care Level: high Nutrition Diagnosis: Swallowing difficulty related to mechanical ventilation as evidenced by need for enteral nutrition Goal: Patient will meet 75-100% of estimated needs by follow up Progress: not progressing toward goal with current tube feed order Interventions: -Tube feeding recommendation - Composition, Rate, Route, Collaboration with other providers Monitoring/Evaluation: -Total energy intake, Total protein intake, Formula/Solution, IVF, Prescription medication, Weight change Signed: Charmaine Rae RD, LD
--- NOTE | 2019-08-06 12:42 | Progress Note ---
DATE: 08/06/2019 Cardiology Progress Note SUBJECTIVE: No complaints. She is extubated. OBJECTIVE: VITAL SIGNS: Temperature 98.6, heart rate 83, blood pressure 171/91, respiratory rate 14, O2 saturation 99%. BMI 72.7. GENERAL: No acute distress, alert. NECK: No JVD. CHEST: Clear to auscultation. CARDIOVASCULAR: Regular rate and rhythm. Normal S1, S2. No S3 or S4. ABDOMEN: Soft. Bowel sounds positive. EXTREMITIES: Trace edema. CARDIOVASCULAR MEDICATIONS: Reviewed. Hydralazine p.r.n. 10 mg q.6 hours, chlorthalidone 25 mg daily, methylprednisolone 20 mg every 8 hours. STUDIES: Reviewed. Creatinine is 1.7, potassium 3.9, chloride 107, bicarbonate 36, sodium 157, BUN 85, glucose 120. White blood cells 11, hemoglobin 11.3, platelets 170. AST 173, ALT 168. ASSESSMENT AND PLAN: A 53-year-old woman with extreme morbid obesity, BMI of 72, emnop-vl-umsywvw hypercapnic respiratory failure, xnnyn-uf-czyxsfb diastolic heart failure, acute renal failure, history of alcohol abuse, abnormal LFTs, anemia, hypertension. RECOMMENDATIONS: 1. Schedule hydralazine 10 mg every 6 hours, hold for systolic blood pressure less than 120. Once cleared to take p.o., transition to oral medications. 2. Monitor volume status and continue diuretics as needed. Praveen Troncoso MD AFRosa/SCOOBY /[id number]
[2019-08-06] MEDS: HYDRALAZINE HCL 20 MG/ML VIAL IV SCH (17:12)
--- NOTE | 2019-08-06 17:47 | NUR ---
Dr. Coles notified of morning lab results. Orders given to d/c Lasix, order BMP, give D5W bolus and then start at continuous rate of 100 ml/hr. Dr. Somers paged about elevated blood pressure sbp 160s-170s. Orders given for scheduled IV hydralazine. Patient had one large loose stool. Patient stood up with physical therapy this afternoon. SNF evaluation ordered. Patient complaining of severe generalized aching. Dr. Miranda and Dr. Nicole paged. Will continue to monitor the patient.
[2019-08-06] MEDS ORDERED: ACETAMINOPHEN 325 MG TAB PO PRN (18:00)
[2019-08-06] MEDS: MONTELUKAST SODIUM 10 MG TAB PO SCH (20:45)
[2019-08-06] MEDS: ESCITALOPRAM OXALATE 10 MG TAB PO SCH (20:45)
[2019-08-06] MEDS: IRON SUCROSE 100 MG in SODIUM CHLORIDE 0.9% 100 ML 100 ML IV SCH (21:24)
[2019-08-07] VITALS (19 sets, daily range): BP systolic 102–149; BP diastolic 62–87
[2019-08-07] MEDS: HYDRALAZINE HCL 20 MG/ML VIAL IV SCH ×4 (01:23→17:52)
[2019-08-07] MEDS: ALBUTEROL/IPRATROPIUM 3 ML NEB NEB SCH ×5 (03:05→23:40)
[2019-08-07 05:24] LABS: BASOPHILS % 0.1 % (0.0-1.0); EOSINOPHILS # (AUTO) 0.1 (0.0-0.4); EOSINOPHILS % 0.8 % (0.0-6.0); HEMATOCRIT 41.7 % (34.2-44.1); HEMOGLOBIN 11.1 g/dL (12.0-16.0); LYMPHOCYTES # (AUTO) 2.4 (1.0-3.2); MEAN CORPUSCULAR HGB CONC 26.6 g/dL (31-35); MEAN CORPUSCULAR VOLUME 82.6 fL (81-99); MONOCYTES # (AUTO) 0.9 (0.2-0.8); MONOCYTES % 7.1 % (4.4-11.3); NEUTROPHILS # (AUTO) 8.7 (2.1-6.9); NEUTROPHILS % 71.3 % (38.7-80.0); PLATELET COUNT 170 x10e3/uL (140-360); RED BLOOD COUNT 5.05 x10e6/uL (3.6-5.1); RED CELL DISTRIBUTION WIDTH 24.5 % (11.7-14.4)
[2019-08-07 05:41] LABS: ALBUMIN 3.3 g/dL (3.5-5.0); ANION GAP 15.1 mmol/L (8-16); CALCIUM 9.8 mg/dL (8.4-10.2); CREATININE, SERUM 1.66 mg/dL (0.57-1.11); POTASSIUM 3.1 mmol/L (3.5-5.1)
[2019-08-07] MEDS: LEVOTHYROXINE SODIUM 75 MCG TAB PO SCH ×2 (05:53→08:16)
[2019-08-07] MEDS: DEXTROSE 5% 1,000 ML IV SCH ×2 (05:53→16:07)
[2019-08-07 06:53] LABS: ANISOCYTOSIS SLIGHT; HYPOCHROMASIA MODERATE; RBC MORPHOLOGY COMMENT ABNORMAL
[2019-08-07] MEDS: BUDESONIDE 0.5MG/2 ML NEB INH SCH ×2 (08:00→19:00)
[2019-08-07] MEDS: FAMOTIDINE 20 MG/2 ML VIAL IV SCH ×2 (08:15→17:52)
[2019-08-07] MEDS: CHLORTHALIDONE 25 MG TAB PO SCH (08:16)
[2019-08-07] MEDS: THIAMINE HCL 100 MG TAB NG SCH (08:16)
--- NOTE | 2019-08-07 13:17 | NUR ---
CM SPOKE WITH PT'S IN THE ICU REGARDING DC PLANS PT HAS NO CRITERIA FOR SNF OTHER THAN PHYSICAL THERAPY ENCOURAGED PT TO WORK WITH PHYSICAL THERAPY MUCH POSSIBLE WHILE HERE ALSO SPOKE WITH DR Wayne GLORIA WHO STATES PT WILL PROBABLY BE DISCHARGED HOME AROUND TUESDAY WITH HOME HEALTH CARE
--- NOTE | 2019-08-07 14:56 | Progress Note ---
DATE: Cardiology Progress Note SUBJECTIVE: Discomfort at Araya catheter site, otherwise no complaints. OBJECTIVE: VITAL SIGNS: Temperature 97.8, heart rate 90, respiratory rate 26, blood pressure 134/85, and O2 saturation 97% on nasal cannula. GENERAL: In no acute distress. Morbidly obese. NECK: Supple. CHEST: Clear to auscultation bilaterally. CARDIOVASCULAR: Regular rate and rhythm. Normal S1, S2. No S3 or S4. ABDOMEN: Soft. EXTREMITIES: Trace edema. Warm distal extremities. CARDIOVASCULAR MEDICATIONS: Reviewed. Hydralazine 10 mg IV q.4 hours as scheduled. LABORATORY DATA: White blood cells 12.1, hemoglobin 11.1, and platelets 170. Sodium 151, potassium 3.1, chloride 103, bicarbonate 36, BUN 70, creatinine 1.6, glucose 93, calcium 9.8. AST 195, ALT 211, alkaline phosphatase 72. ASSESSMENT AND PLAN: 1. A 53-year-old woman with history of morbid obesity, BMI of 72, sibnw-ah-mzizvqr hypercapnic respiratory failure, aexqo-pt-jteneez diastolic heart failure, acute renal failure, dysuria, history of alcohol abuse, abnormal LFTs with mild worsening today; anemia, hypertension, aspiration risk. Recommend await further Speech assessment depending on aspiration risks. If patient able to tolerate p.o., transition to oral antihypertensive therapy. 2. Abnormal LFTs. Similarly worsening today and consider further workup. Defer to primary service. 3. The patient with complaints of dysuria today. Araya catheter in place. Consider discontinue Araya if okay with other treating physicians, we will defer to primary service and Nephrology expertise. Praveen Troncoso MD AFRosa/MODL /[id number]
--- NOTE | 2019-08-07 15:20 | NUR ---
Rceived patient and a/ox3, c/o anxiety and call from Tele with tachycardia, patient in no distress, states was anxious which happens occasionally. VSS 136/60, P82, O2Sat 98%Ra, LSC, no resp distress, will monitor.
--- NOTE | 2019-08-07 16:08 | NUR ---
Patient feeling better, no distress, IV fluids running, call light within reach, a/ox3, willl monitor
--- NOTE | 2019-08-07 18:20 | NUR ---
Patient alert and responsive, VSS and voided x2 post removal of Araya cath, also had a BM, call light within reach, will monitor.
--- NOTE | 2019-08-07 19:09 | NUR ---
Received bedside report from day nurse. Patient resting in bed, no s/s of distress or c/o pain at this time. All safety measures in place. Will continue to monitor.
[2019-08-07] MEDS: ESCITALOPRAM OXALATE 10 MG TAB PO SCH (20:18)
[2019-08-07] MEDS: MONTELUKAST SODIUM 10 MG TAB PO SCH (20:18)
[2019-08-07] MEDS: IRON SUCROSE 100 MG in SODIUM CHLORIDE 0.9% 100 ML 100 ML IV SCH (21:26)
--- NOTE | 2019-08-07 21:56 | NUR ---
Changed PICC line dressing and replaced all ports. Unused ports clamped and capped. Patient tolerated procedure.
[2019-08-08] VITALS (8 sets, daily range): BP systolic 112–138; BP diastolic 67–77
[2019-08-08] MEDS: TRAMADOL HCL 50 MG TAB PO PRN ×2 (00:15→14:55)
[2019-08-08] MEDS: HYDRALAZINE HCL 20 MG/ML VIAL IV SCH ×3 (00:15→12:53)
[2019-08-08] MEDS: ALBUTEROL/IPRATROPIUM 3 ML NEB NEB SCH ×6 (02:45→23:00)
[2019-08-08] MEDS: DEXTROSE 5% 1,000 ML IV SCH ×3 (02:48→20:30)
[2019-08-08 05:08] LABS: EOSINOPHILS # (AUTO) 0.3 (0.0-0.4); EOSINOPHILS % 2.3 % (0.0-6.0); HEMATOCRIT 36.5 % (34.2-44.1); HEMOGLOBIN 9.7 g/dL (12.0-16.0); LYMPHOCYTES # (AUTO) 1.7 (1.0-3.2); LYMPHOCYTES % 14.4 % (18.0-39.1); MEAN CORPUSCULAR HGB CONC 26.6 g/dL (31-35); MONOCYTES # (AUTO) 0.8 (0.2-0.8); MONOCYTES % 6.8 % (4.4-11.3); NEUTROPHILS # (AUTO) 8.9 (2.1-6.9); PLATELET COUNT 148 x10e3/uL (140-360); RED CELL DISTRIBUTION WIDTH 23.7 % (11.7-14.4)
[2019-08-08 05:27] LABS: ALBUMIN 2.9 g/dL (3.5-5.0); ANION GAP 12.6 mmol/L (8-16); CALCIUM 8.7 mg/dL (8.4-10.2); CREATININE, SERUM 1.24 mg/dL (0.57-1.11)
[2019-08-08 05:38] LABS: POTASSIUM 2.6 mmol/L (3.5-5.1)
--- NOTE | 2019-08-08 05:41 | NUR ---
Informed by lab of critical lab values, potassium level of 2.6 and glucose level of 410. Paged Dr. Nicole. Awaiting return call.
--- NOTE | 2019-08-08 05:44 | NUR ---
Patient resting in bed with BIPAP in place, arousable, alert and oriented x3. No s/s of distress or c/o pain at this time. Currently running sinus rhythm @ 84. All safety measures in place. Will continue to monitor.
--- NOTE | 2019-08-08 06:21 | NUR ---
Paged Dr. Nicole again regarding critical lab values. Awaiting return call. Patient not exhibiting any s/s of distress or c/o pain at this time. All safety measures in place. Will continue to monitor.
[2019-08-08] MEDS: LEVOTHYROXINE SODIUM 75 MCG TAB PO SCH (06:31)
--- NOTE | 2019-08-08 06:53 | NUR ---
Bedside report given to day nurse. Patient resting in bed, no s/s of distress or c/o pain at this time. All safety measures in place.
--- NOTE | 2019-08-08 07:16 | NUR ---
Patient alert and responsive, received this morning and no resp distress, in bed, call light within reach, rounds completed, will monitor.
[2019-08-08 07:24] LABS: HYPOCHROMASIA SLIGHT
[2019-08-08 07:25] LABS: ANISOCYTOSIS SLIGHT
[2019-08-08] MEDS: BUDESONIDE 0.5MG/2 ML NEB INH SCH ×2 (07:30→19:25)
[2019-08-08 08:45] LABS: CALCIUM 9.7 mg/dL (8.4-10.2); CREATININE, SERUM 1.1 mg/dL (0.57-1.11)
[2019-08-08] MEDS: CHLORTHALIDONE 25 MG TAB PO SCH (09:14)
[2019-08-08] MEDS: FAMOTIDINE 20 MG/2 ML VIAL IV SCH ×2 (09:14→16:48)
[2019-08-08] MEDS: THIAMINE HCL 100 MG TAB NG SCH (09:14)
[2019-08-08] MEDS ORDERED: POTASSIUM CHLORIDE 20 MEQ TAB CR PO ONE (10:08)
--- NOTE | 2019-08-08 10:09 | NUR ---
Spoke with Dr. Nunez and orders for 40 meq KCL po x1.
--- NOTE | 2019-08-08 17:41 | Progress Note ---
DATE: 08/08/2019 Cardiology Progress Note SUBJECTIVE: No complaints today. On telemetry, sinus rhythm OBJECTIVE: VITAL SIGNS: Temperature 98.4, heart rate of 91-119, respiratory rate 17, blood pressure 112/74, O2 sat 96% on 2 L/min nasal cannula. GENERAL: In no acute distress. Alert. NECK: No JVD. CHEST: Clear to auscultation. CARDIOVASCULAR: Regular rate and rhythm. Normal S1, S2. ABDOMEN: Soft. Bowel sounds positive. Morbidly obese. EXTREMITIES: Trace edema. CARDIOVASCULAR MEDICATIONS: Reviewed. Hydralazine 10 mg IV every 4 hours scheduled. We will switch to p.o. dosing today. LABORATORY DATA: White blood cells 11.6, hemoglobin 9.7, platelets 148. Sodium 146, potassium 3, chloride 100, bicarbonate 31, BUN 46, creatinine 1.1, glucose 98. ASSESSMENT AND PLAN: A 53-year-old woman with: 1. Eglfc-gl-neessan hypercapnic respiratory failure. 2. Tzljo-yu-icetuuh diastolic heart failure. 3. Acute renal failure. 4. History of alcohol abuse. 5. Abnormal liver function tests. 6. Anemia. 7. Hypertension. 8. Aspiration risk. 9. Extreme morbid obesity with BMI of 72. RECOMMEND: 1. If tolerating p.o. transition antihypertensive regimen to oral route. We will consolidate with carvedilol q.12 hours and discontinue IV hydralazine. 2. Replete potassium as needed. MD FERMÍN Tarango/SCOOBY /[id number]
--- NOTE | 2019-08-08 19:10 | NUR ---
Received the patient in report.lyeing in the bed.stable condition.
[2019-08-08] MEDS: CARVEDILOL 12.5 MG TAB PO SCH (20:51)
[2019-08-08] MEDS: ESCITALOPRAM OXALATE 10 MG TAB PO SCH (21:11)
[2019-08-08] MEDS: MONTELUKAST SODIUM 10 MG TAB PO SCH (21:11)
[2019-08-08] MEDS: IRON SUCROSE 100 MG in SODIUM CHLORIDE 0.9% 100 ML 100 ML IV SCH (21:11)
--- NOTE | 2019-08-08 21:45 | NUR ---
AaoX3.assessment done.no resp.distress.iv to right upper arm piccline patent.bed locked and in lowest position.phone and call light within reach.instructed to call for assistance as needed.
[2019-08-09] VITALS (8 sets, daily range): BP systolic 120–143; BP diastolic 57–88
[2019-08-09] MEDS: ALBUTEROL/IPRATROPIUM 3 ML NEB NEB SCH ×6 (02:30→22:10)
[2019-08-09] MEDS: TRAMADOL HCL 50 MG TAB PO PRN ×2 (02:32→20:50)
--- NOTE | 2019-08-09 05:00 | NUR ---
Assisted to use bed side commode.pt is back to bed safely.was using bipap during night.blood drawn from right upper arm picc line and sent to the lab.
[2019-08-09 05:25] LABS: BASOPHILS % 0.1 % (0.0-1.0); EOSINOPHILS # (AUTO) 0.4 (0.0-0.4); EOSINOPHILS % 2.8 % (0.0-6.0); HEMATOCRIT 38.2 % (34.2-44.1); HEMOGLOBIN 10.5 g/dL (12.0-16.0); LYMPHOCYTES # (AUTO) 1.6 (1.0-3.2); LYMPHOCYTES % 11.9 % (18.0-39.1); MEAN CORPUSCULAR HEMOGLOBIN 22.4 pg (28-32); MEAN CORPUSCULAR HGB CONC 27.5 g/dL (31-35); MEAN CORPUSCULAR VOLUME 81.6 fL (81-99); MONOCYTES # (AUTO) 0.8 (0.2-0.8); MONOCYTES % 5.8 % (4.4-11.3); NEUTROPHILS # (AUTO) 10.8 (2.1-6.9); PLATELET COUNT 102 x10e3/uL (140-360); RED BLOOD COUNT 4.68 x10e6/uL (3.6-5.1); RED CELL DISTRIBUTION WIDTH 23.7 % (11.7-14.4)
[2019-08-09] MEDS: LEVOTHYROXINE SODIUM 75 MCG TAB PO SCH (05:31)
[2019-08-09 05:55] LABS: ALBUMIN 3.2 g/dL (3.5-5.0); ANION GAP 16.2 mmol/L (8-16); CALCIUM 9.3 mg/dL (8.4-10.2); POTASSIUM 3.2 mmol/L (3.5-5.1)
[2019-08-09 06:17] LABS: CREATININE, SERUM 1.08 mg/dL (0.57-1.11)
[2019-08-09] MEDS: DEXTROSE 5% 1,000 ML IV SCH (06:28)
[2019-08-09] MEDS: BUDESONIDE 0.5MG/2 ML NEB INH SCH ×2 (07:00→22:10)
--- NOTE | 2019-08-09 07:00 | NUR ---
Bed side shift report given to oncoming RN.stable condition.
[2019-08-09] MEDS ORDERED: POTASSIUM CHLORIDE 20 MEQ TAB CR PO NR (08:30)
[2019-08-09] MEDS: THIAMINE HCL 100 MG TAB NG SCH (09:03)
[2019-08-09] MEDS: FAMOTIDINE 20 MG/2 ML VIAL IV SCH ×2 (09:03→16:04)
[2019-08-09] MEDS: CARVEDILOL 12.5 MG TAB PO SCH ×2 (09:03→20:50)
[2019-08-09] MEDS: CHLORTHALIDONE 25 MG TAB PO SCH (09:03)
--- NOTE | 2019-08-09 11:39 | NUR ---
Order received from Dr Wayne Nicole for a form of noninvasive ventilation, bipap, cpap etc for dc. Spoke to patient, she has home O2 and a nebulizer, unsure of the company. Signs choice for [facility] for home dme. Spoke to Dr. Miranda, his progress note is given to Jose Alberto with [facility]. Paged Dr. Nicole to notify and also d/t patient needing home health
--- NOTE | 2019-08-09 11:55 | NUR ---
Call to Wayne Nicole - unable to reach MD at his office. Only number available is office number. Awaiting order for home health, patient wishing for physical therapy at home.
--- NOTE | 2019-08-09 13:17 | NUR ---
Obtained order from Dr Nicole for home health. Informed him that noninvasive vent will be delivered to patient's house upon DC. Asked if patient could d/c today but states keyla abernathy.
--- NOTE | 2019-08-09 13:39 | NUR ---
home health referral faxed to [facility] [phone]
--- NOTE | 2019-08-09 14:00 | NUR ---
Patient c/o coughing brown phlegm. Notified . Aware patient not on any IV or PO abx. No new orders at this time
--- NOTE | 2019-08-09 14:38 | NUR ---
Follow up Note RD Recommendation(s) for Physician: -Continue current diet per MD. Plan of Care: RD following, monitoring for tolerance and adequacy. Nutrition reason for involvement: follow up RD Assessment 08/09: Follow up: Pt has been transferred out of the ICU and onto the floors. Pt passes her beside swallow within the ICU and was started on a diet. She stated her appetite was not that good, she denied N/V/C/D/chewing or swallowing issues currently. Provided her with diet education regarding current diet as well as low Na diet. Possible d/c tmrw. Will continue to monitor. 08/06: Follow up: Pt remains in the ICU, has been extubated, on NC. Spoke about pt in rounds, per nurse the MD does not want the pt to have a speech eval yet d/t her high risk of aspiration, pt is no longer on TFs. Pt was started on D5W today. Pts Na-remains high, was started on D5. Will continue to monitor. (08/02/19) Follow up. Pt remains intubated and Jevity 1.2 tube feeding diet order was placed on 07/31. Pt is tolerating tube feeding per RN. Discussed recommendation of modifying tube feeding to Vital High Protein with RN. Will continue to monitor. (07/30/19) Pt is a 53 year old female admitted with abdominal wall cellulitis. Pt was experiencing respiratory distress; therefore, pt was intubated. There were no family members present at bedside; therefore, nutrition history is limited. Recommend enteral nutrition if pt is to remain intubated. Discussed recommendations with RN. Will continue to monitor. Principal Problems/Diagnoses: abdominal wall cellulitis PMH: hypothyroid, obstructive sleep apnea, anxiety, morbid obesity, gastric bypass surgery IVF: D5W at 100 ml/hr (120 gram dex, 408 kcal) GI: soft, non-tender, large, abdomen, LBM: 08/08 Skin: no pressure ulcers documented Labs: 08/09: K 3.2, Co2 32, BUN 32, tbili 1.5, AST 73, ALT 105 08/06: Na 153, CO2 37, BUN 80, Creat 1.78, Gluc 114, Ca 10.8 (08/02/19) BUN 74, Creat 2.14, Glu 150, BNP 301 (07/30/19) BUN 36, Creat 1.94, Glu 146, Mg 2.2 Meds: thiamine, pepcid protonix, levothyroxine, iron sucrose, zofran, hydralazine Ht: 61 inches Wt: 392 lbs 386 lbs (07/30/19) 385 (08/06) BMI: 74.1 kg/m2 IBW: 105 lbs Malnutrition Evaluation (07/30/19) The patient does not meet criteria for a specified degree of malnutrition at this time. Will re-evaluate at follow-up as appropriate. Unable to assess. Nutrition Prescription (Diet Order): Jevity 1.2 @ 30 mL/hr Estimated Nutritional Needs: 5131-5646 calories/day (22-25 kcal/kg IBW) 72-119 g protein/day (1.5-2.5 g pro/kg IBW) Diet Adequacy: meeting calorie needs, meeting protein needs Tolerance: Tolerating po Diet Education Needs Assessment: Diet education indicated, pt accepted. Nutrition Care Level:mod- pt extubated, on the floors, consuming po Nutrition Diagnosis: Swallowing difficulty related to mechanical ventilation as evidenced by need for enteral nutrition Goal: Patient will meet 75-100% of estimated needs by follow up Progress: not progressing toward goal with current tube feed order Interventions: -modified diet (carb, mineral (sodium), IVF, prescription medication Monitoring/Evaluation: -Total energy intake, Total protein intake, IVF, Prescription medication Learner(s): pt Barriers: none Cultural/Language Modifications: none Readiness: acceptance Method: discussion, handout Topics:Low Na Diet Understanding/Compliance: verbalized understanding, anticipate fair compliance Signed: Charmaine Rae RD, LD
[2019-08-09] MEDS ORDERED: ONDANSETRON HCL 4 MG ORAL DISINTEGRATING TAB PO PRN (15:00)
--- NOTE | 2019-08-09 16:00 | Progress Note ---
DATE: 08/09/2019 Cardiology Progress Note SUBJECTIVE: No complaints. OBJECTIVE: VITAL SIGNS: Temperature 97.7, heart rate 93, respiratory rate 20, blood pressure 129/88, O2 saturation 95% on 3 L/minute nasal cannula. GENERAL: No acute distress. NECK: No JVD. CHEST: Clear to auscultation. CARDIOVASCULAR: Regular rate and rhythm. Normal S1 and S2. ABDOMEN: Soft. Bowel sounds positive. EXTREMITIES: Trace edema. CARDIOVASCULAR MEDICATIONS: Reviewed. Carvedilol 6.25 mg every 12 hours. LABORATORY DATA: White blood cells 13.6, hemoglobin 10.5, platelets a 102. Sodium 143, potassium 3.2, chloride 98, bicarbonate 32, BUN 32, creatinine 1.08, glucose 91, calcium 9.3. AST 73, ALT 105, total protein 6.4, albumin 3.2. TELEMETRY: Sinus tachycardia. ASSESSMENT AND PLAN: 1. Eekmy-jd-zvgqydp hypercapnic respiratory failure. 2. Cadba-ix-bnrcxsm diastolic heart failure. 3. Acute renal failure. 4. History of alcohol abuse. 5. Abnormal liver function tests. 6. Anemia. 7. Hypertension. 8. Aspiration risk. 9. Extreme morbid obesity with BMI of 72. RECOMMEND: 1. Continue current cardiovascular medications. Blood pressure and heart rate improved following Carvedilol initiation p.o. Replete electrolytes as needed. 2. Diuretic for maintenance of euvolemia. 3. Overall better, seems deconditioned. Consider PT/OT assessment. Praveen Troncoso MD AFV/MODL /[id number]
--- NOTE | 2019-08-09 19:05 | NUR ---
Report given to oncoming nurse of patient's status. Resting in bed. No s/s of acute distress noted. Side rails upx3, call light within reach.
--- NOTE | 2019-08-09 20:00 | NUR ---
pt received. pt assessed. no ss distress noted. pt co pain at time to lower back. discussed pain mgnt poc. will medicate per orders. verbalized understanding. will cont to follow poc. call burton within reach.
--- NOTE | 2019-08-09 20:45 | NUR ---
report given to new primary nurse at time. walking rounds made.
--- NOTE | 2019-08-09 20:47 | NUR ---
Report received from charge nurse. Pt alert to name, lying in bed. c/o mod chronic back pain, will be medicated. Call light within reach. Will continue to monitor.
[2019-08-09] MEDS: ESCITALOPRAM OXALATE 10 MG TAB PO SCH (20:50)
[2019-08-09] MEDS: MONTELUKAST SODIUM 10 MG TAB PO SCH (20:51)
[2019-08-10 00:46] VITALS: BP 115/69
[2019-08-10] MEDS: ALBUTEROL/IPRATROPIUM 3 ML NEB NEB SCH ×3 (02:00→11:00)
[2019-08-10 05:16] LABS: BASOPHILS % 0.2 % (0.0-1.0); EOSINOPHILS # (AUTO) 0.4 (0.0-0.4); EOSINOPHILS % 3.4 % (0.0-6.0); HEMATOCRIT 40.1 % (34.2-44.1); HEMOGLOBIN 10.8 g/dL (12.0-16.0); LYMPHOCYTES # (AUTO) 1.8 (1.0-3.2); LYMPHOCYTES % 13.8 % (18.0-39.1); MEAN CORPUSCULAR HEMOGLOBIN 22.3 pg (28-32); MEAN CORPUSCULAR HGB CONC 26.9 g/dL (31-35); MEAN CORPUSCULAR VOLUME 82.9 fL (81-99); MONOCYTES # (AUTO) 0.7 (0.2-0.8); MONOCYTES % 5.7 % (4.4-11.3); NEUTROPHILS # (AUTO) 9.7 (2.1-6.9); NEUTROPHILS % 76.3 % (38.7-80.0); PLATELET COUNT 166 x10e3/uL (140-360); RED BLOOD COUNT 4.84 x10e6/uL (3.6-5.1); RED CELL DISTRIBUTION WIDTH 23.1 % (11.7-14.4)
[2019-08-10 05:21] VITALS: BP 123/73
[2019-08-10 05:39] LABS: ALANINE AMINOTRANSFERASE 96 IU/L (0-55); ALBUMIN 3.4 g/dL (3.5-5.0); ALBUMIN/GLOBULIN RATIO 0.9 (0.8-2.0); ALKALINE PHOSPHATASE 87 IU/L (40-150); ANION GAP 16.4 mmol/L (8-16); BLOOD UREA NITROGEN 20 mg/dL (7-26); BUN/CREATININE RATIO 21 (6-25); CALCIUM 9.7 mg/dL (8.4-10.2); CARBON DIOXIDE 29 mmol/L (22-29); CHLORIDE 98 mmol/L (98-107); CREATININE, SERUM 0.96 mg/dL (0.57-1.11); EST GLOMERULAR FILTRATION RATE > 60 ML/MIN (60-); GLUCOSE 90 mg/dL (74-118); POTASSIUM 3.4 mmol/L (3.5-5.1); SODIUM 140 mmol/L (136-145)
[2019-08-10] MEDS: LEVOTHYROXINE SODIUM 75 MCG TAB PO SCH (06:00)
[2019-08-10] MEDS: BUDESONIDE 0.5MG/2 ML NEB INH SCH (06:50)
--- NOTE | 2019-08-10 07:00 | NUR ---
received am report and rounds done. pt is alert resting in bed, no s/s of distress. call light within reach and instructed pt to call RN for help
[2019-08-10 08:57] VITALS: BP 140/76
[2019-08-10] MEDS: FAMOTIDINE 20 MG/2 ML VIAL IV SCH (08:58)
[2019-08-10] MEDS: THIAMINE HCL 100 MG TAB NG SCH (08:58)
[2019-08-10] MEDS: CHLORTHALIDONE 25 MG TAB PO SCH (08:59)
[2019-08-10] MEDS: CARVEDILOL 12.5 MG TAB PO SCH (08:59)
[2019-08-10] MEDS ORDERED: POTASSIUM CHLORIDE 20 MEQ TAB CR PO SCH (09:00)
[2019-08-10 10:24] VITALS: BP 140/76
--- NOTE | 2019-08-10 11:36 | NUR ---
Spoke with Jose Alberto Pritchett with [facility], informed of dc for today. He will be in contact with pt to deliver noninvasive vent to her house. Called and spoke with Thierry with [facility] [phone]. States they already sent auth [facility] for [facility] health. LIT called and spoke to Carolyn at [facility], who states they can see pt tomorrow. [facility] [address] [place] [id number] Start of service: August 11, 2019 Home health information was printed and given to pt's sister Ilsa at [facility]. Pt currently out of room working with therapy.
[2019-08-10] MEDS: TRAMADOL HCL 50 MG TAB PO PRN (11:50)
[2019-08-10 11:51] VITALS: BP 129/83
--- NOTE | 2019-08-10 12:24 | Progress Note ---
DATE: 08/10/2019 Cardiology Progress Note SUBJECTIVE: No complaints. OBJECTIVE: VITAL SIGNS: Temperature 96.5, heart rate 90, respiratory rate 20, blood pressure 140/76, and O2 saturation 91% on 3 L/minute nasal cannula. GENERAL: In no acute distress. Alert. NECK: No JVD. CHEST: Clear to auscultation. CARDIOVASCULAR: Regular rate and rhythm. Normal S1 and S2. ABDOMEN: Soft. Bowel sounds positive. EXTREMITIES: Trace edema. CARDIOVASCULAR MEDICATIONS: Reviewed. KCl 10 mEq daily, carvedilol 6.25 mg every 12 hours, and chlorthalidone 25 mg daily. STUDIES: Reviewed. White blood cells 12.6, hemoglobin 10.8, and platelets 166. Sodium 140, potassium 3.4, chloride 98, bicarbonate 29, BUN 20, creatinine 0.9, and glucose 90. AST 84 and ALT 96, improving. Albumin is 3.4 and total protein 7.1. ASSESSMENT AND PLAN: 1. A 53-year-old woman presents with [id number]-[id number] hypercapnic respiratory failure, now resolved. 2. Zlaxu-ib-tvmahqm diastolic heart failure, now resolved. 3. Acute renal failure, now resolved. 4. History of alcohol abuse, status post cessation counseling, which was provided personally by myself today. 5. Abnormal liver function tests, improving. 6. Anemia. 7. Hypertension. 8. Aspiration risk, now improved. 9. Extreme morbid obesity with BMI of 72. RECOMMENDATIONS: 1. Continue current cardiovascular medication. 2. Outpatient PT/OT advised. 3. Diuretics as needed to maintain euvolemic state. Replete electrolytes as needed. 4. Close outpatient followup with primary care. 5. Outpatient followup with Cardiology within the next 6 weeks. Praveen Troncoso MD [facility]/MODL /[id number]
[2019-08-10] MEDS ORDERED: FAMOTIDINE 20 MG TAB PO SCH (16:30)
[2019-08-17 10:03] LABS: ABG PH 7.28 (7.31-7.41)
[2019-08-17 10:04] LABS: ABG HCO3 37 mmol/L (23-28); ABG PCO2 80 mmHg (41-51); ABG PO2 98 mmHg (80-105)
== END 2019-08-10 12:30 | disposition home or self-care (01) | DRG 602 ==
LOC: ER 15:17 → ERHOLD 17:21 → MED/SURG3 18:01 → OBSVTOIN 07-26 09:21 → ICU 07-27 13:08 → MED/SURG2 08-07 15:21
PROVIDERS: ADMIT Internal Medicine; ATTEND Internal Medicine
PROC: 5A1955Z Respiratory Ventilation, Greater than 96 Consecutive Hours (ICD-10-PCS; principal; 2019-07-28)
PROC: 02HV33Z Insertion of Infusion Device into Superior Vena Cava, Percutaneous Approach (ICD-10-PCS; 2019-07-28)
PROC: B548ZZA Ultrasonography of Superior Vena Cava, Guidance (ICD-10-PCS; 2019-07-28)
PROC: 02HV33Z Insertion of Infusion Device into Superior Vena Cava, Percutaneous Approach (ICD-10-PCS; 2019-07-30)
PROC: B548ZZA Ultrasonography of Superior Vena Cava, Guidance (ICD-10-PCS; 2019-07-30)
DX: L03.311 Cellulitis of abdominal wall (principal); I50.33 Acute on chronic diastolic (congestive) heart failure; J96.01 Acute respiratory failure with hypoxia; N17.0 Acute kidney failure with tubular necrosis; J96.22 Acute and chronic respiratory failure with hypercapnia; Z68.45 Body mass index [BMI] 70 or greater, adult; N17.9 Acute kidney failure, unspecified; E66.2 Morbid (severe) obesity with alveolar hypoventilation; E87.2 Acidosis; E87.1 Hypo-osmolality and hyponatremia; E87.3 Alkalosis; N18.3 Chronic kidney disease, stage 3 (moderate); E87.5 Hyperkalemia; J45.909 Unspecified asthma, uncomplicated; E03.9 Hypothyroidism, unspecified; Z90.49 Acquired absence of other specified parts of digestive tract; Z98.84 Bariatric surgery status; F10.20 Alcohol dependence, uncomplicated; K76.9 Liver disease, unspecified; F41.9 Anxiety disorder, unspecified; J30.9 Allergic rhinitis, unspecified; D50.9 Iron deficiency anemia, unspecified; I87.2 Venous insufficiency (chronic) (peripheral); G47.33 Obstructive sleep apnea (adult) (pediatric)
CPT/HCPCS: 36415; 36569; 36600; 71045; 74018; 74176; 80048; 80053; 80202; 80320; 81001; 82040; 82140; 82550; 82553; 82570; 82607; 82728; 82805; 82948; 83036; 83540; 83605; 83690; 83735; 83880; 83935; 84100; 84132; 84300; 84439; 84443; 84466; 84481; 84484; 85025; 85045; 85610; 85730; 86803; 87040; 87070; 87086; 87205; 87400; 93005; 93306; 94002; 94003; 94640; 94660; 96361; 97139; 99284; C1751; G0378; J0330; J0360; J1100; J1650; J1756; J1817; J1940; J2250; J2270; J2405; J2543; J2920; J3370; J3411; J7030; J7040; J7042; J7050; J7070; J7799

== ENCOUNTER → 2020-02-21 | Outpatient (CLI) | payer OTHER ==
[~2020-02-21] MED LIST: FUROSEMIDE40 MG PO; LEVOTHYROXINE50 MCG PO; LEXAPRO10 MG PO; MONTELUKAST SOD10 MG PO
--- NOTE | 2020-02-21 08:46 | Diagnostic Imaging Report ---
X-ray left shoulder 2 views History: Pain for 2 weeks Comparison: None. Findings: There is no acute fracture, subluxation, significant soft tissue abnormality or swelling, no radiopaque foreign body. Impression: No acute abnormality on this exam. Signed by: Keo Sheets MD on 02/21/2020 8:43 AM
== END ==
LOC: RAD 07:14
PROVIDERS: ATTEND Internal Medicine
DX: M25.512 Pain in left shoulder (principal)

== ENCOUNTER 2020-03-21 07:19 | Outpatient (RCR) | payer OTHER | END 2020-04-14 | LOC: PT 07:19 | PROVIDERS: ATTEND Specialist | DX: M25.512 Pain in left shoulder (principal); M62.81 Muscle weakness (generalized); M25.612 Stiffness of left shoulder, not elsewhere classified ==